=== PATIENT | male | born 1960 | race Two or more races ===

== ENCOUNTER 2019-12-09 19:24 | Inpatient (IN) | payer MEDICAID ==
[~2019-12-09] VITALS: Ht 167.6 cm; Wt 54.9 kg
[~2019-12-09 19:24] MED LIST: AMOXICILLIN125 MG ORAL; BENZTROPINE ME0.5 MG PO; CEFTRIAXON1 GM/50 ML IV; DAPSONE100 M1 ORAL; FISH OIL 500 M1 EAC4 PO; LAMIVUDINE150 MG ORAL; MULTIVITAMINS1 EAC2 ORAL; NORVIR100 M2 ORAL; PREZISTA600 MG ORAL; RISPERDAL1 MG/1 ML PO; ZIAGEN300 MG ORAL
[2019-12-09 19:37] LABS: HEMATOCRIT 29.9 % (42.0-52.0); MEAN CORPUSCULAR VOLUME 105 FL (80-99); NEUTROPHILS % (AUTO) 65.3 % (45.0-75.0); PLATELET COUNT 163 K/UL (150-450); RED BLOOD COUNT 2.86 M/UL (4.70-6.10); RED CELL DISTRIBUTION WIDTH 13.3 % (11.6-14.8); WHITE BLOOD COUNT 14.4 K/UL (4.8-10.8)
[2019-12-09 19:38] LABS: BASOPHILS % (AUTO) 0.9 % (0.0-2.0); EOSINOPHILS % (AUTO) 0.8 % (0.0-3.0); LYMPHOCYTES % (AUTO) 21.4 % (20.0-45.0); MONOCYTES % (AUTO) 11.5 % (1.0-10.0)
[2019-12-09 19:45] LABS: ANION GAP 10 mmol/L (5-15); BLOOD UREA NITROGEN 26 mg/dL (7-18); CALCIUM 7.9 MG/DL (8.5-10.1); CARBON DIOXIDE 26 MMOL/L (21-32); CHLORIDE 100 MMOL/L (98-107); CREATININE 1.3 MG/DL (0.55-1.30); SODIUM 136 MMOL/L (136-145)
[2019-12-09 19:59] LABS: ALANINE AMINOTRANSFERASE 29 U/L (12-78); ALBUMIN 2.4 G/DL (3.4-5.0); ALBUMIN/GLOBULIN RATIO 0.7 (1.0-2.7); ALKALINE PHOSPHATASE 115 U/L (46-116); ASPARTATE AMINO TRANSFERASE 24 U/L (15-37); BILIRUBIN,TOTAL 1.3 MG/DL (0.2-1.0)
[2019-12-09 20:00] LABS: BILIRUBIN,DIRECT 0.8 MG/DL (0.0-0.3)
--- NOTE | 2019-12-09 20:20 | NUR ---
ED Nurse Note: Patient provided with a gown, linen changed due to soiling, urinary catheter inserted due to incontinence, ADDTIONAL ekg taken since it was connected an unit taken from room. patient vital signs are within normal range and documented, patient still on 4L N/c satting at 100%. Will continue to monitor.
--- NOTE | 2019-12-09 20:23 | Emergency Room Report ---
History of Present Illness General Chief Complaint: Fever Source: Patient Present Illness HPI 59-year-old male presents for fever. From [facility] O2 sats 88 % on room air. Started on nasal cannula. Fever at facility. Given Tylenol. Afebrile in triage. Patient states he feels fine. Denies chest pain or shortness of breath. No other aggravating relieving factors. Denies any other associated symptoms Allergies: Coded Allergies: No Known Allergies (Unverified , 07/22/19) COVID-19 Screening Contact w/high risk pt: Yes Recent Travel to affected area: No Experienced COVID-19 symptoms?: Yes COVID-19 symptoms experienced: Fever (T>100.4F or >38C) COVID-19 Testing performed QUALITY CONTROL ASSESSOR: No Patient History Past Medical History: none Past Surgical History: none Pertinent Family History: none Social History: Denies: smoking, alcohol use, drug use Immunizations: UTD Reviewed Nursing Documentation: PMH: Agreed; PSxH: Agreed Nursing Documentation-PMH Past Medical History: No History, Except For Review of Systems All Other Systems: negative except mentioned in HPI Physical Exam Vital Signs Date Time Temp Pulse Resp B/P (MAP) Pulse Ox O2 Delivery O2 Flow Rate FiO2 12/09/19 19:25 97.9 90 18 101/66 (78) 92 Room Air Sp02 EP Interpretation: reviewed, normal General Appearance: no apparent distress, alert, GCS 15, non-toxic Head: normocephalic, atraumatic Eyes: bilateral eye normal inspection, bilateral eye PERRL ENT: hearing grossly normal, normal pharynx, no angioedema, normal voice Neck: full range of motion, supple/symm/no masses Respiratory: chest non-tender, normal breath sounds, crackles, speaking full sentences Cardiovascular #1: regular rate, rhythm, no edema Cardiovascular #2: 2+ carotid (R), 2+ carotid (L), 2+ radial (R), 2+ radial (L) , 2+ dorsalis pedis (R), 2+ dorsalis pedis (L) Gastrointestinal: normal bowel sounds, non tender, soft, non-distended, no guarding, no rebound Rectal: deferred Genitourinary: normal inspection, no CVA tenderness Musculoskeletal: back normal, normal range of motion, gait/station normal, non- tender Neurologic: alert, motor strength/tone normal, oriented x3, sensory intact, responsive, speech normal Psychiatric: judgement/insight normal, memory normal, mood/affect normal, no suicidal/homicidal ideation Reflexes: 3+ bicep (R), 3+ bicep (L), 3+ tricep (R), 3+ tricep (L), 3+ knee (R) , 3+ knee (L) Skin: other - see nursing skin notes Lymphatic: no adenopathy Medical Decision Making Diagnostic Impression: Primary Impression: Fever Qualified Codes: R50.9 - Fever, unspecified Additional Impression: Pneumonia Qualified Codes: J18.9 - Pneumonia, unspecified organism ER Course Hospital Course 59 yo M presents with fever, hypoxia. Differential diagnoses include: Pneumonia, CHF exacerbation, pneumothorax, fluid overload Clinical course Patient placed on stretcher. in isolation. i wore full PPE. On radiation monitor with hypoxia on room air. After initial history and physical I ordered labs, EKG, chest x-ray Labs -leukocytosis noted, hemoglobin/hematocrit stable, electrolytes ok, lactate okay troponins negative CXR - R sided lobe infiltrate COVID swab sent. Antibiotics given. IV fluids given. patient resting comfortably on Nasal Cannula Case discussed with Dr. Michael and he agreed to the patient to his service for further care and support I feel this is a highly complex case requiring extensive working including EKG/ Rhythm strip, Xray/CT/US, Blood/urine lab work, repeat exams while in ED, and administration of strong opiates/narcotics for pain control, admission to hospital or close patient follow up. Diagnosis - pneumonia, fever Patient admitted to floor in serious condition Labs Test 12/09/19 18:45 White Blood Count 14.4 K/UL (4.8-10.8) Red Blood Count 2.86 M/UL (4.70-6.10) Hemoglobin 9.0 G/DL (14.2-18.0) Hematocrit 29.9 % (42.0-52.0) Mean Corpuscular Volume 105 FL (80-99) Mean Corpuscular Hemoglobin 31.5 PG (27.0-31.0) Mean Corpuscular Hemoglobin Concent 30.1 G/DL (32.0-36.0) Red Cell Distribution Width 13.3 % (11.6-14.8) Platelet Count 163 K/UL (150-450) Mean Platelet Volume 9.6 FL (6.5-10.1) Neutrophils (%) (Auto) 65.3 % (45.0-75.0) Lymphocytes (%) (Auto) 21.4 % (20.0-45.0) Monocytes (%) (Auto) 11.5 % (1.0-10.0) Eosinophils (%) (Auto) 0.8 % (0.0-3.0) Basophils (%) (Auto) 0.9 % (0.0-2.0) Sodium Level 136 MMOL/L (136-145) Potassium Level 4.0 MMOL/L (3.5-5.1) Chloride Level 100 MMOL/L (98-107) Carbon Dioxide Level 26 MMOL/L (21-32) Anion Gap 10 mmol/L (5-15) Blood Urea Nitrogen 26 mg/dL (7-18) Creatinine 1.3 MG/DL (0.55-1.30) Estimat Glomerular Filtration Rate 56.3 mL/min (>60) Glucose Level 119 MG/DL (74-106) Lactic Acid Level 1.40 mmol/L (0.4-2.0) Calcium Level 7.9 MG/DL (8.5-10.1) Total Bilirubin 1.3 MG/DL (0.2-1.0) Direct Bilirubin 0.8 MG/DL (0.0-0.3) Aspartate Amino Transf (AST/SGOT) 24 U/L (15-37) Alanine Aminotransferase (ALT/SGPT) 29 U/L (12-78) Alkaline Phosphatase 115 U/L (46-116) Pro-B-Type Natriuretic Peptide 591 pg/mL (0-125) Total Protein 5.9 G/DL (6.4-8.2) Albumin 2.4 G/DL (3.4-5.0) Globulin 3.5 g/dL Albumin/Globulin Ratio 0.7 (1.0-2.7) EKG Diagnostic Results Rate: normal Rhythm: NSR ST Segments: other - RBBB ASA given to the pt in ED: No Rhythm Strip Diag. Results EP Interpretation: yes Rhythm: NSR, no PVC's, no ectopy Chest X-Ray Diagnostic Results Chest X-Ray Diagnostic Results : Chest X-Ray Ordered: Yes # of Views/Limited/Complete: 1 View Indication: Shortness of Breath EP Interpretation: Yes Interpretation: no effusion, other - perihilar congestion R side Impression: Other - pneumonia Electronically Signed by: Electronically signed by Salvador Salazar MD Last Vital Signs Date Time Temp Pulse Resp B/P (MAP) Pulse Ox O2 Delivery O2 Flow Rate FiO2 12/09/19 19:25 97.9 90 18 101/66 (78) 92 Room Air Status: improved Disposition: ADMITTED INPATIENT Condition: Serious Referrals: Latoya Michael MD (PCP) Salvador Salazar MD Dec 09, 2019 20:23
[2019-12-09 20:55] VITALS: BP 110/69
--- NOTE | 2019-12-09 21:10 | NUR ---
ED Nurse Note: Patient awake and alert, urine draining well, although dark mima. Will continue to monitor.
[2019-12-09 21:33] LABS: APPEARANCE,URINE SLIGHTLY CLOUDY; BILIRUBIN, URINE 1+ (NEGATIVE); GLUCOSE, URINE (UA) NEGATIVE (NEGATIVE); KETONES,URINE NEGATIVE (NEGATIVE); LEUKOCYTE ESTERASE ,URINE 2+ (NEGATIVE); NITRITE,URINE NEGATIVE (NEGATIVE); PH,URINE 6 (4.5-8.0); PROTEIN,URINE 2+ (NEGATIVE); UROBILINOGEN,URINE 8 MG/DL (0.0-1.0)
[2019-12-09 21:34] LABS: COLOR,URINE YELLOW
[2019-12-09 23:11] VITALS: BP 122/73
--- NOTE | 2019-12-09 23:11 | NUR ---
ED Nurse Note: Patient awake and alert, resting comfortably with no s/s of acute distress. vital signs stable and documented. Patient reports that his boyfriend may come to visit him, patient informed of no visitor status.
[2019-12-10] VITALS (8 sets, daily range): BP systolic 107–126; BP diastolic 62–75
--- NOTE | 2019-12-10 00:14 | NUR ---
ED Nurse Note: Received call from dr. Samson with the following orders and information: Tylenol 650 mg PO q6 PRN NPO O2 PRN sat 92%< Code Status: patient wishes No IV fluids; Hep Lock only AM Lab: CMP; CBC Consults called in: Angelica- Pulmonary [place]- Cardiology Ronald Nguyen - Infectious Disease. Addendum: 12/10/19 at 0046 by LOLI ED Nurse Note: Also DC home meds
--- NOTE | 2019-12-10 01:30 | NUR ---
ED Nurse Note: Patient sleeping soundly, no s/s of acute distress. NPO status continued.
--- NOTE | 2019-12-10 02:35 | NUR ---
ED Nurse Note: Patient is sleeping, non labored breathing, will continue to monitor saturation levels.
--- NOTE | 2019-12-10 03:40 | NUR ---
ED Nurse Note: Patient is still sleeping, vitals are all within normal range. will continue to monitor for transport to floor once bed is assigned.
--- NOTE | 2019-12-10 04:45 | NUR ---
ED Nurse Note: Patient is sleeping soundly, no s/s of acute distress, breathing unlabored. Will continue to monitor.
--- NOTE | 2019-12-10 05:54 | NUR ---
ED Nurse Note: Patient is sleeping soundly, no s/s of acute distress.
--- NOTE | 2019-12-10 07:03 | NUR ---
ED Nurse Note: Patient still sleeping, brething even and unlabored, vital signs stable and documented. NO BREAKFAST ORDERED, PATIENT IS NPO. Will relay status in report upon shift change.
--- NOTE | 2019-12-10 07:16 | NUR ---
HAND-OFF: Report given to Shawna Yepez RN.
--- NOTE | 2019-12-10 08:38 | NUR ---
ED Nurse Note: received pt from LORAINE Good for continuity of care. Pt on bed, awake and alert, VSS, on NC, NAD noted. Blood collected for morning labs. Maintained pt on NPO. Will continue to monitor.
[2019-12-10 08:40] LABS: BASOPHILS % (AUTO) 0.9 % (0.0-2.0); EOSINOPHILS % (AUTO) 0.7 % (0.0-3.0); HEMATOCRIT 28.7 % (42.0-52.0); HEMOGLOBIN 9.6 G/DL (14.2-18.0); LYMPHOCYTES % (AUTO) 17.8 % (20.0-45.0); MEAN CORPUSCULAR VOLUME 94 FL (80-99); MONOCYTES % (AUTO) 10.9 % (1.0-10.0); NEUTROPHILS % (AUTO) 69.7 % (45.0-75.0); PLATELET COUNT 174 K/UL (150-450); RED BLOOD COUNT 3.04 M/UL (4.70-6.10); RED CELL DISTRIBUTION WIDTH 12.3 % (11.6-14.8); WHITE BLOOD COUNT 12.1 K/UL (4.8-10.8)
[2019-12-10 08:54] LABS: ANION GAP 8 mmol/L (5-15); BLOOD UREA NITROGEN 20 mg/dL (7-18); CALCIUM 7.8 MG/DL (8.5-10.1); CARBON DIOXIDE 26 MMOL/L (21-32); CHLORIDE 102 MMOL/L (98-107); CREATININE 1.1 MG/DL (0.55-1.30); SODIUM 136 MMOL/L (136-145)
--- NOTE | 2019-12-10 09:00 | NUR ---
ED Nurse Note: Pt's a FULL CODE per Dr. Alec vail aware.
[2019-12-10 09:13] LABS: ALANINE AMINOTRANSFERASE 22 U/L (12-78); ALBUMIN 2.2 G/DL (3.4-5.0); ALBUMIN/GLOBULIN RATIO 0.5 (1.0-2.7); ALKALINE PHOSPHATASE 96 U/L (46-116); ASPARTATE AMINO TRANSFERASE 19 U/L (15-37); BILIRUBIN,TOTAL 1.4 MG/DL (0.2-1.0)
[2019-12-10 09:14] LABS: BILIRUBIN,DIRECT 0.7 MG/DL (0.0-0.3)
--- NOTE | 2019-12-10 12:30 | NUR ---
ED Nurse Note: report was given to LORAINE Dalton for continuity of care.
--- NOTE | 2019-12-10 12:54 | Diagnostic Imaging Report ---
Indication: Cough Technique: One view of the chest Comparison: 07/22/2019 Findings: The lungs and pleural spaces are clear. The heart size is normal. There is left paratracheal fullness which is not evident previously although may be exaggerated by slight rightward rotation. Impression: Nonspecific mild interstitial prominence bilaterally, similar to prior study 07/22/2019 Possible left paratracheal mass. Consider CT for further evaluation. Dr. Guerrero notified of this finding at the time of interpretation
--- NOTE | 2019-12-10 13:04 | NUR ---
TRANSFER TO MED SURG UNIT: Patient transferred to Med Surg Unit as ordered, per Dr. Michael. Report given to LORAINE Dalton. All belongings sent with pt. Family and or S/O informed of transfer.
[2019-12-10] MEDS ORDERED: Acetaminophen 500mg (ES) tab ORAL PRN (13:15)
--- NOTE | 2019-12-10 13:15 | Consultation ---
DATE OF CONSULTATION: 12/10/2019 PULMONARY CONSULTATION CONSULTING PHYSICIAN: August Dominguez MD. HISTORY OF PRESENT ILLNESS: This is a 59-year-old senior living resident admitted to the hospital with hypoxemia and fever. The patient denies any chest pain or shortness of breath. He is a senior living resident. His workup was notable for high white count of 14,000, and creatinine 1.1. His COVID-19 PCR was tested yesterday and found to be negative. His x-ray chest has shown right lower lobe infiltrate. Clinically, the patient states he is feeling better. PAST MEDICAL HISTORY: Notable for CHF, CAD, schizophrenia. HOME MEDICATIONS: Reviewed and reconciled in chart. In the past, he has been found to have UTI as well. REVIEW OF SYSTEMS: He denies any headaches, hematemesis, melena, hematochezia, night sweats, or weight loss. PHYSICAL EXAMINATION: GENERAL: Reveals a 59-year-old male. VITAL SIGNS: Blood pressure 130/60, heart rate 84, respirations , he is afebrile. T-max 100.2. HEENT: Unremarkable. LUNGS: Clear breath sounds bilaterally. ABDOMEN: Soft. EXTREMITIES: There is no edema. NEUROLOGIC: Nonfocal. LABORATORY DATA: Lab testing discussed above. X-ray chest shows recurrent right lower lobe infiltrate. IMPRESSION: 1. Pneumonia, right lower lobe, healthcare-acquired. 2. History of previous UTI. 3. HIV. 4. CHF. 5. Schizophrenia. DISCUSSION: Admit to the hospital. The patient will be seen by ID. Agree with empiric antibiotics, oxygen, and pulmonary hygiene. We will follow. August Dominguez M.D. DR: VINCENT JOB#: [id number] CC:
--- NOTE | 2019-12-10 13:29 | Cardiac Electrophysiology PN ---
Subjective Subjective [id number] Objective Last 24 Hour Vital Signs Date Time Temp Pulse Resp B/P (MAP) Pulse Ox O2 Delivery O2 Flow Rate FiO2 12/10/19 12:23 97.9 85 16 115/75 99 Nasal Cannula 3.0 12/10/19 09:54 97.9 95 14 110/70 99 Nasal Cannula 3.0 12/10/19 07:02 97.9 97 12 107/69 98 Nasal Cannula 3.0 12/10/19 05:31 97.9 97 22 126/66 98 Nasal Cannula 3.0 12/10/19 03:32 97.9 89 17 107/62 95 Nasal Cannula 3.0 12/10/19 02:04 97.9 93 21 115/66 95 Nasal Cannula 3.0 12/09/19 23:11 97.9 89 17 122/73 99 Nasal Cannula 3.0 12/09/19 20:55 97.9 83 25 110/69 97 Nasal Cannula 4.0 12/09/19 20:55 83 25 Room Air 12/09/19 19:25 97.9 90 18 101/66 (78) 92 Room Air Intake and Output 12/09/19 12/10/19 19:00 07:00 Intake Total 1000 ml Output Total 1000 ml Balance 0 ml Intake Oral 0 ml IV Total 1000 ml Output Urine Total 1000 ml Laboratory Tests Test 12/09/19 18:45 12/09/19 20:59 12/10/19 08:15 White Blood Count 14.4 K/UL (4.8-10.8) H 12.1 K/UL (4.8-10.8) H Red Blood Count 2.86 M/UL (4.70-6.10) L 3.04 M/UL (4.70-6.10) L Hemoglobin 9.0 G/DL (14.2-18.0) L 9.6 G/DL (14.2-18.0) L Hematocrit 29.9 % (42.0-52.0) L 28.7 % (42.0-52.0) L Mean Corpuscular Volume 105 FL (80-99) H 94 FL (80-99) # Mean Corpuscular Hemoglobin 31.5 PG (27.0-31.0) H 31.7 PG (27.0-31.0) H Mean Corpuscular Hemoglobin Concent 30.1 G/DL (32.0-36.0) L 33.6 G/DL (32.0-36.0) Red Cell Distribution Width 13.3 % (11.6-14.8) 12.3 % (11.6-14.8) Platelet Count 163 K/UL (150-450) 174 K/UL (150-450) Mean Platelet Volume 9.6 FL (6.5-10.1) 7.2 FL (6.5-10.1) Neutrophils (%) (Auto) 65.3 % (45.0-75.0) 69.7 % (45.0-75.0) Lymphocytes (%) (Auto) 21.4 % (20.0-45.0) 17.8 % (20.0-45.0) L Monocytes (%) (Auto) 11.5 % (1.0-10.0) H 10.9 % (1.0-10.0) H Eosinophils (%) (Auto) 0.8 % (0.0-3.0) 0.7 % (0.0-3.0) Basophils (%) (Auto) 0.9 % (0.0-2.0) 0.9 % (0.0-2.0) Sodium Level 136 MMOL/L (136-145) 136 MMOL/L (136-145) Potassium Level 4.0 MMOL/L (3.5-5.1) 4.0 MMOL/L (3.5-5.1) Chloride Level 100 MMOL/L (98-107) 102 MMOL/L (98-107) Carbon Dioxide Level 26 MMOL/L (21-32) 26 MMOL/L (21-32) Anion Gap 10 mmol/L (5-15) 8 mmol/L (5-15) Blood Urea Nitrogen 26 mg/dL (7-18) H 20 mg/dL (7-18) H Creatinine 1.3 MG/DL (0.55-1.30) 1.1 MG/DL (0.55-1.30) Estimat Glomerular Filtration Rate 56.3 mL/min (>60) > 60 mL/min (>60) Glucose Level 119 MG/DL (74-106) H 109 MG/DL (74-106) H Lactic Acid Level 1.40 mmol/L (0.4-2.0) Calcium Level 7.9 MG/DL (8.5-10.1) L 7.8 MG/DL (8.5-10.1) L Total Bilirubin 1.3 MG/DL (0.2-1.0) H 1.4 MG/DL (0.2-1.0) H Direct Bilirubin 0.8 MG/DL (0.0-0.3) H 0.7 MG/DL (0.0-0.3) H Aspartate Amino Transf (AST/SGOT) 24 U/L (15-37) 19 U/L (15-37) Alanine Aminotransferase (ALT/SGPT) 29 U/L (12-78) 22 U/L (12-78) Alkaline Phosphatase 115 U/L (46-116) 96 U/L (46-116) Troponin I 0.000 ng/mL (0.000-0.056) Pro-B-Type Natriuretic Peptide 591 pg/mL (0-125) H Total Protein 5.9 G/DL (6.4-8.2) L 6.3 G/DL (6.4-8.2) L Albumin 2.4 G/DL (3.4-5.0) L 2.2 G/DL (3.4-5.0) L Globulin 3.5 g/dL 4.1 g/dL Albumin/Globulin Ratio 0.7 (1.0-2.7) L 0.5 (1.0-2.7) L Urine Color Yellow Urine Appearance Slightly cloudy Urine pH 6 (4.5-8.0) Urine Specific [place] 1.010 (1.005-1.035) Urine Protein 2+ (NEGATIVE) H Urine Glucose (UA) Negative (NEGATIVE) Urine Ketones Negative (NEGATIVE) Urine Blood 2+ (NEGATIVE) H Urine Nitrite Negative (NEGATIVE) Urine Bilirubin 1+ (NEGATIVE) H Urine Ictotest Negative (NEGATIVE) Urine Urobilinogen 8 MG/DL (0.0-1.0) H Urine Leukocyte Esterase 2+ (NEGATIVE) H Urine RBC 5-10 /HPF (0 - 0) H Urine WBC 10-15 /HPF (0 - 0) H Urine Squamous Epithelial Cells Few /LPF (NONE/OCC) Urine Bacteria Many /HPF (NONE) H Microbiology Date/Time Source Procedure Growth Status 12/09/19 18:45 Nasopharynx Coronavirus COVID-19 PCR ([facility]) - Final Complete 12/09/19 20:59 Urine,Clean Catch Urine Culture - Preliminary Resulted Kin Reynaga MD Dec 10, 2019 13:29
[2019-12-10] MEDS: Levofloxacin 750mg tab ORAL SCH (16:41)
--- NOTE | 2019-12-10 19:07 | NUR ---
HAND-OFF: Report given to Lian Thayer RN. Patient in supine position, watching television, on room air, side rails up x 3, Sarabia catheter in place, bed in lowest position, call light within reach, no c/o pain, no SOB, in no apparent distress.
--- NOTE | 2019-12-10 19:30 | Consultation ---
DATE OF CONSULTATION: 12/10/2019 CARDIOLOGY CONSULTATION CONSULTING PHYSICIAN: Kin Reynaga MD. REFERRING PHYSICIAN: Latoya Michael MD. REASON FOR CONSULTATION: Shortness of breath and tachycardia. HISTORY OF PRESENT ILLNESS: The patient is a 59-year-old senior living resident with history of coronary artery disease, congestive heart failure, and schizophrenia, who was brought from senior living for hypoxemia and fever. The patient did not have any chest pain or shortness of breath; however, he was noted to have white count of 14,000. His COVID PCR yesterday was negative; however, chest x-ray showed right lower lobe infiltrate. The patient was admitted for right lower lobe community-acquired pneumonia and Cardiology consultation was obtained for further evaluation. REVIEW OF SYSTEMS: Negative other than what was mentioned in the history of present illness. PAST MEDICAL HISTORY: As mentioned above. FAMILY HISTORY: Noncontributory. SOCIAL HISTORY: He is a senior living resident. PHYSICAL EXAMINATION: VITAL SIGNS: Show blood pressure 115/75, pulse is 85, respiration 18, and temperature 97.9. HEAD AND NECK: Shows no JVD. LUNGS: Coarse rhonchi. CARDIOVASCULAR: Shows regular S1 and S2 with no gallop or murmur. ABDOMEN: Soft. EXTREMITIES: No pitting edema. LABORATORY DATA: White count 12, hemoglobin 9, hematocrit 28.7, and platelet count is 174,000. Sodium 132, potassium 4.0, BUN of 20, creatinine 1.0. His troponin is negative. BNP is 591. ASSESSMENT AND PLAN: 1. Shortness of breath and elevated BNP. The patient also has history of congestive heart failure, but his predominant presentation is likely pneumonia with elevated white count of 14,000. We will get an echocardiogram and completely rule out [place] protocol and his first troponin is negative. 2. History of schizophrenia. 3. Previous UTI. 4. Right lower lobe pneumonia. Follow up with Dr. Dominguez. 5. Questionable HIV. Thank you very much for allowing me to participate in the care of this patient. Please do not hesitate to contact me for any questions regarding my evaluation. Kin Reynaga M.D. DR: Michael JOB#: [id number] CC:
--- NOTE | 2019-12-10 19:40 | NUR ---
NURSE NOTES: Patient awake in bed, alert x2. On nasal cannula 2L with no signs of distress or SOB. IV intact and patent. Sarabia catheter in place, draining to gravity. No C/O pain. Bed locked and in lowest position. Call light in reach.
[2019-12-10] MEDS ORDERED: RISPERDAL1 MG PO (20:33)
[2019-12-10] MEDS ORDERED: SM CALAMINE LO177 ML TP (20:33)
[2019-12-10] MEDS ORDERED: ACETAMINOPHEN325 M1 ORAL (20:33)
[2019-12-10] MEDS ORDERED: TYLENOL EXTRA500 MG ORAL (20:33)
[2019-12-10] MEDS ORDERED: VITAMIN D325 MCG PO (20:33)
[2019-12-11] VITALS: BP 114/66
--- NOTE | 2019-12-11 | Consultation ---
DATE OF CONSULTATION: 12/10/2019 INFECTIOUS DISEASES CONSULTATION CONSULTING PHYSICIAN: Ronald Nguyen MD PRIMARY ATTENDING PHYSICIAN: Latoya Michael MD REASON FOR CONSULT: Pneumonia, UTI, and HIV. HISTORY OF PRESENT ILLNESS: A 59-year-old male, admitted from a [facility] facility yesterday because of fever and decrease in O2 saturation to 88%. The patient did not have any fever in the hospital and currently on room air, but had leukocytosis of 14.4. PAST MEDICAL HISTORY: Significant for HIV, taking abacavir, ritonavir, lamivudine, and Prezista. Nursing facility. He has history of cryptococcal meningitis. The last CD4 was 218 and viral load was undetectable. 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 A HIDA scan was negative for cholecystitis. ALLERGIES: No known drug allergies. MEDICATIONS: Got a dose of Levaquin yesterday. Currently is on Tylenol. SOCIAL HISTORY: Single, detention resident, disabled. REVIEW OF SYSTEMS: Unobtainable. The patient is only oriented to himself. PHYSICAL EXAMINATION: VITAL SIGNS: Temperature 97.9, blood pressure 114/74, and pulse 85. GENERAL APPEARANCE: No acute distress. HEAD AND NECK: Has no teeth in the lower jaw. HEART: Normal rate. LUNGS: Clear. ABDOMEN: Soft, nontender. EXTREMITIES: No edema. NEUROLOGIC: Awake, alert, and responsive. LABORATORY AND DIAGNOSTIC DATA: WBC today is 12.1, hemoglobin 9.6, hematocrit 28.7, and platelets are 174. Sodium 136, potassium 4, chloride 102, bicarbonate 26, BUN 20, creatinine 1.1, and glucose 109. The patient's chest x-ray showed nonspecific mild parenchymal prominence bilaterally, possible left parabronchial mass. COVID-19 test was negative. Urine culture is pending. UA showed RBC of 5 to 10, WBC 10 to 15, bacteria many. IMPRESSION: HIV, questionable lung mass or pneumonia, Pyuria & hematuria, likely UTI, has nephrolithiasis with right-sided staghorn stone, schizophrenia, anemia, has bifascicular heart block. RECOMMENDATION: We will continue with Levaquin. We will order a CT scan of the chest. We will resume the HIV medication if it is available in hospital. At the end of my exam, I thank Dr. Michael for involving me in the care of this patient. Ronald Nguyen M.D. DR: JACK JOB#: [id number] CC: [place]
[2019-12-11 03:25] VITALS: BP 114/67
--- NOTE | 2019-12-11 03:30 | History and Physical Report ---
DATE OF ADMISSION: 12/09/2019 HISTORY OF PRESENT ILLNESS: The patient was sent from a skilled nursing for hypoxia. The patient denies shortness of breath. Denies cough. Denies chest pain. The patient also has hypoxia and fever at the skilled nursing and was initially on 10 liters at the skilled nursing. The patient was found to have pneumonia on chest x-ray and also was tachycardic at the skilled nursing. The patient denies nausea, vomiting, or diarrhea. Denies chest pain. PAST MEDICAL HISTORY: Organic brain syndrome, history of GERD, history of HIV, history of psychosis, history of anemia. PAST SURGICAL HISTORY: Denies. ALLERGIES: No known allergies. FAMILY HISTORY: Noncontributory. SOCIAL HISTORY: Denies of smoking. Denies history of alcohol use. Denies history of drug abuse. MEDICATIONS: Cogentin, vitamin E, Prezista, lamivudine, multivitamin, risperidone and Norvir. REVIEW OF SYSTEMS: HEENT: Headaches. RESPIRATORY: Denies shortness of breath. Denies cough. CARDIOVASCULAR: Denies chest pain. GASTROINTESTINAL: Denies nausea, vomiting, or diarrhea. EXTREMITIES: Denies pain, however, is a relatively poor historian. PHYSICAL EXAMINATION: VITAL SIGNS: Temperature 97.9, pulse is 95, blood pressure 110/70. HEENT: PERRLA. NECK: Supple. CHEST: Bibasilar rhonchi. CARDIOVASCULAR: Regular rate and rhythm. No murmurs or extra sounds. GASTROINTESTINAL: Soft, nontender, nondistended. No organomegaly. EXTREMITIES: No edema. He is able to moves extremities, generalized weakness, reflexes in both sides. LABORATORY DATA: WBC of 14.4, hemoglobin of 9, platelets 163. Sodium 137, potassium 4, BUN of 26, and creatinine 1.3. Glucose of 114. Chest x-ray shows no possible pneumonia, respiratory insufficiency, sepsis or hypoxia at the skilled nursing, tachycardia at the skilled nursing. The patient also had fever at the skilled nursing. ASSESSMENT AND PLAN: Pneumonia, respiratory insufficiency, sepsis, and hypoxia. I have consulted Dr. Dominguez, Dr. Ronald Nguyen, Dr. Reynaga to help with the management of the above-mentioned abnormalities symptoms and abnormal labs as well abnormal imaging. Latoya Michael M.D. DR: AIDAN JOB#: [id number] CC:
--- NOTE | 2019-12-11 07:20 | NUR ---
HAND-OFF: Report given to LORAINE Raya.
[2019-12-11 08:00] VITALS: BP 114/69
--- NOTE | 2019-12-11 08:07 | NUR ---
NURSE NOTES: Report received from Lian BARON. Patient seen on rounds, AxOx1, able to follow commands and make needs known, on 2lpm via NC, no signs of distress, no complaints of pain. PIV on right forearm intact. Sarabia secured and draining well. Bed low and locked, siderails up x2, zone alarms on 1, call light within reach and instructed to call nurse for assistance. Will continue to monitor.
--- NOTE | 2019-12-11 08:17 | NUR ---
NURSE NOTES: Patient taken down for CT scan of chest in stable condition.
--- NOTE | 2019-12-11 08:32 | NUR ---
NURSE NOTES: Patient returned from CT in stable condition.
[2019-12-11] MEDS: Levofloxacin 750mg tab ORAL SCH (08:35)
--- NOTE | 2019-12-11 10:09 | Consultation ---
History of Present Illness General Chief Complaint: Fever Present Illness Allergies: Coded Allergies: No Known Allergies (Unverified , 07/22/19) Medication History Scheduled Abacavir Tab* (Ziagen Tab*), 300 MG ORAL TWICE A DAY, (Reported) Benztropine Mesylate* (Cogentin*), 0.5 MG PO BEDTIME, (Reported) Calamine/Zinc Oxide (Sm Calamine Lotion), 177 ML TP Q4HR, (Reported) Cholecalciferol (Vitamin D3) (Vitamin D3), 25 MCG PO DAILY, (Reported) Dapsone (Dapsone), 100 MG ORAL DAILY, (Reported) Darunavir Ethanolate* (Prezista*), 600 MG ORAL BID, (Reported) Lamivudine (Lamivudine), 150 MG ORAL TWICE A DAY, (Reported) Multivitamins* (Multivitamins*), 1 TAB ORAL DAILY, (Reported) Risperidone* (Risperdal*), 1 MG PO BID, (Reported) Ritonavir (Norvir), 100 MG ORAL WITH MEALS, (Reported) [place] Oil/[place]-3 Fatty Acids (Fish Oil 500 mg Softgel), 1 EACH PO DAILY, ( Reported) Scheduled PRN Acetaminophen* (Tylenol Extra Strength*), 1,000 MG ORAL Q4HR PRN for Mild Pain ( Pain Scale 1-3), (Reported) Acetaminophen* (Acetaminophen 325MG Tablet*), 650 MG ORAL Q4H PRN for Mild Pain (Pain Scale 1-3), (Reported) Discontinued Medications Amoxicillin (Amoxicillin), 500 MG ORAL Q8HR, (Reported) Discontinued Reason: Therapy completed Risperidone (Risperdal), 1 MG PO BEDTIME, (Reported) Discontinued Reason: Prescription changed Patient History Healthcare decision maker Resuscitation status Advanced Directive on File Physical Exam Last 24 Hour Vital Signs Date Time Temp Pulse Resp B/P (MAP) Pulse Ox O2 Delivery O2 Flow Rate FiO2 12/11/19 08:00 98.9 90 17 114/69 (84) 94 12/11/19 03:25 97.7 93 18 114/67 (83) 95 12/11/19 00:00 99.1 95 16 114/66 (82) 95 12/10/19 21:56 99.2 12/10/19 21:00 Nasal Cannula 2.0 12/10/19 20:00 101.5 101 22 113/66 (82) 92 12/10/19 16:00 98.0 101 18 122/73 (89) 94 12/10/19 14:16 Nasal Cannula 2.0 12/10/19 13:04 97.9 85 17 114/74 100 Nasal Cannula 3.0 12/10/19 12:23 97.9 85 16 115/75 99 Nasal Cannula 3.0 Intake and Output 12/10/19 12/11/19 19:00 07:00 Intake Total 800 ml 480 ml Output Total 1400 ml Balance 800 ml -920 ml Intake Oral 800 ml 480 ml Output Urine Total 1400 ml # Bowel Movements 1 Microbiology Date/Time Source Procedure Growth Status 12/10/19 14:32 Rectum Received Height (Feet): 5 Height (Inches): 6.00 Weight (Pounds): 120 Medications Current Medications Medications (Trade) Dose Ordered Sig/Sparkle Route PRN Reason Start Time Stop Time Status Last Admin Dose Admin Acetaminophen (Tylenol) 500 mg Q4H PRN ORAL Temp >100.5 12/10/19 13:15 01/09/20 13:14 12/10/19 21:26 Levofloxacin (Levaquin) 750 mg DAILY ORAL 12/10/19 16:00 12/17/19 15:59 12/11/19 08:35 Assessment/Plan Assessment/Plan: Hematology Consultation REQ : Latoya Guerrero RFC: Loeukocytosis and anemia DOS 12/11/2019 ID 59y old male presents a snf resident with history of HIV and schizophrenia, coronary artery disease, and congestive heart failure, who has been a smoker in the past, was brought to the emergency room for cough and hypoxemia, with fevers as well as eval for pna. At the time of my evaluation, the patient denies that his name. Denies any chest pain.for concern of ongoing cough, tachycardia and hypoxemia. The patient himself has no pain or complaints. He denies shortness of breath or chest pain. HAs low platelets, 116k and I have seen him before. Allergies: No Known Allergies (Unverified , 07/22/19) Past Medical History: see triage record, CAD, CHF, psych hx - schizophrenia, HIV Nursing Documentation-PMH Past Medical History: No History, Except For FAMILY HISTORY: Noncontributory. SOCIAL HISTORY: He lives in a snf. Does not smoke or drink alcohol. Review of Systems All Other Systems: negative except mentioned in HPI Physical Exam Vitals: reviewed, normal Gen: no apparent distress, alert, GCS 15 HEENT: normocephalic, atraumatic Resp: chest non-tender, lungs clear, normal breath sounds Cardiovascular: regular rate, rhythm, no edema GI: normal bowel sounds, non tender, soft, nd Msk: normal range of motion, nt Neuro: alert, responsive, speech normal, no focal defects Skin: other - See RN skin exam Lymphatic: no adenopathy Labs noted Imaging reviewed Assessment and Recs # Anemia of chronic disease, multifactorial --> no bleeding noted --> no hemolysis is seen --> hgb trend 12-->11->9.6 --> transfuse as needed # Leukocytosis likely due to pna --> wbc 14-->12 --> smear is noted --> ct of chest pending # Thrombocytopenia with a hx of low platelets in the past, currently 116k on admission, may be related to underlying pna --> smear has been reviewed --> hep panel negative, hiv NEG --> meds reviewed --> HOLD transf unless platelet drops significantly lower --> plt trend 115-->164k->174k # Pneumonia on cxr --> s/p abx that have been given --> per id --> abx: levaquin --> Ct of the chest noted # Shortness of breath likely due to the patient's underlying COPD and possible pneumonia. The patient is already on ceftriaxone and azithromycin. His first troponin is negative. --> as per pulm --> NC # HIV on anti-retroviral therapy --> per Dr. Ronald Nguyen. # UTI. --> s/p abx # Schizophrenia. # Right lower lobe pneumonia. Appreciate consultation and dw Rn. Prasad Franks MD Dec 11, 2019 10:09
[2019-12-11 10:27] LABS: BASOPHILS % (AUTO) 0.9 % (0.0-2.0); HEMATOCRIT 29.7 % (42.0-52.0); HEMOGLOBIN 9.6 G/DL (14.2-18.0); LYMPHOCYTES % (AUTO) 24.6 % (20.0-45.0); MEAN CORPUSCULAR VOLUME 101 FL (80-99); MONOCYTES % (AUTO) 9.2 % (1.0-10.0); NEUTROPHILS % (AUTO) 64.3 % (45.0-75.0); PLATELET COUNT 189 K/UL (150-450); RED BLOOD COUNT 2.94 M/UL (4.70-6.10); RED CELL DISTRIBUTION WIDTH 12.3 % (11.6-14.8); WHITE BLOOD COUNT 10.9 K/UL (4.8-10.8)
[2019-12-11 10:44] LABS: ALANINE AMINOTRANSFERASE 25 U/L (12-78); ALBUMIN 2.1 G/DL (3.4-5.0); ALBUMIN/GLOBULIN RATIO 0.5 (1.0-2.7); ALKALINE PHOSPHATASE 106 U/L (46-116); ANION GAP 8 mmol/L (5-15); ASPARTATE AMINO TRANSFERASE 18 U/L (15-37); BILIRUBIN,TOTAL 0.9 MG/DL (0.2-1.0); BLOOD UREA NITROGEN 23 mg/dL (7-18); CALCIUM 8.2 MG/DL (8.5-10.1); CARBON DIOXIDE 27 MMOL/L (21-32); CHLORIDE 104 MMOL/L (98-107); CREATININE 1.3 MG/DL (0.55-1.30); POTASSIUM 3.8 MMOL/L (3.5-5.1); SODIUM 139 MMOL/L (136-145)
--- NOTE | 2019-12-11 11:22 | Pulmonology Progress Note ---
Subjective Interval Events: Comfortable; denies pain Constitutional: Reports: no symptoms HEENT: Repors: no symptoms Respiratory: Reports: no symptoms Cardiovascular: Reports: no symptoms Gastrointestinal/Abdominal: Reports: no symptoms Genitourinary: Reports: no symptoms Allergies: Coded Allergies: No Known Allergies (Unverified , 07/22/19) Objective Last 24 Hour Vital Signs Date Time Temp Pulse Resp B/P (MAP) Pulse Ox O2 Delivery O2 Flow Rate FiO2 12/11/19 09:00 Nasal Cannula 2.0 12/11/19 08:00 98.9 90 17 114/69 (84) 94 12/11/19 03:25 97.7 93 18 114/67 (83) 95 12/11/19 00:00 99.1 95 16 114/66 (82) 95 12/10/19 21:56 99.2 12/10/19 21:00 Nasal Cannula 2.0 12/10/19 20:00 101.5 101 22 113/66 (82) 92 12/10/19 16:00 98.0 101 18 122/73 (89) 94 12/10/19 14:16 Nasal Cannula 2.0 12/10/19 13:04 97.9 85 17 114/74 100 Nasal Cannula 3.0 12/10/19 12:23 97.9 85 16 115/75 99 Nasal Cannula 3.0 Intake and Output 12/10/19 12/11/19 19:00 07:00 Intake Total 800 ml 480 ml Output Total 1400 ml Balance 800 ml -920 ml Intake Oral 800 ml 480 ml Output Urine Total 1400 ml # Bowel Movements 1 General Appearance: no acute distress HEENT: normocephalic Respiratory: chest wall non-tender Cardiovascular: normal peripheral pulses Abdomen: normal bowel sounds Microbiology Date/Time Source Procedure Growth Status 12/09/19 18:40 Blood Blood Culture - Preliminary NO GROWTH AFTER 24 HOURS Resulted 12/09/19 18:15 Blood Blood Culture - Preliminary NO GROWTH AFTER 24 HOURS Resulted 12/09/19 18:45 Nasopharynx Coronavirus COVID-19 PCR ([facility]) - Final Complete 12/09/19 20:59 Urine,Clean Catch Urine Culture - Preliminary Strep Species, Alpha Hemolytic Resulted 12/10/19 14:32 Rectum Received Laboratory Tests 12/11/19 10:15: White Blood Count [Pending], Red Blood Count 2.94L, Hemoglobin 9.6L, Hematocrit 29.7L, Mean Corpuscular Volume 101H, Mean Corpuscular Hemoglobin 32.5H, Mean Corpuscular Hemoglobin Concent 32.2, Red Cell Distribution Width 12.3, Platelet Count 189, Mean Platelet Volume 8.2, Neutrophils (%) (Auto) 64.3, Lymphocytes (% ) (Auto) 24.6, Monocytes (%) (Auto) 9.2, Eosinophils (%) (Auto) 1.0, Basophils ( %) (Auto) 0.9, Lymphocytes [Pending], Sodium Level 139, Potassium Level 3.8, Chloride Level 104, Carbon Dioxide Level 27, Anion Gap 8, Blood Urea Nitrogen 23H, Creatinine 1.3, Estimat Glomerular Filtration Rate 56.3, Glucose Level 130H , Calcium Level 8.2L, Total Bilirubin 0.9, Aspartate Amino Transf (AST/SGOT) 18 , Alanine Aminotransferase (ALT/SGPT) 25, Alkaline Phosphatase 106, Troponin I 0.000, Pro-B-Type Natriuretic Peptide 341H, Total Protein 6.6, Albumin 2.1L, Globulin 4.5, Albumin/Globulin Ratio 0.5L, Thyroid Stimulating Hormone (TSH) 1.441, Free Thyroxine 1.15, Percent CD3 Cells [Pending], Absolute CD3 Count [ Pending], Percent CD4 Cells [Pending], Absolute CD4 Count [Pending], T- Lymphocyte CD4/CD8 Ratio [Pending], Percent CD8 Cells [Pending], Absolute CD8 Count [Pending] Current Medications Medications (Trade) Dose Ordered Sig/Sparkle Route PRN Reason Start Time Stop Time Status Last Admin Dose Admin Acetaminophen (Tylenol) 500 mg Q4H PRN ORAL Temp >100.5 12/10/19 13:15 01/09/20 13:14 12/10/19 21:26 Levofloxacin (Levaquin) 750 mg DAILY ORAL 12/10/19 16:00 12/17/19 15:59 12/11/19 08:35 Assessment/Plan Assessment/Plan IMPRESSION: 1. Pneumonia, right lower lobe, healthcare-acquired. 2. History of previous UTI. 3. HIV. 4. CHF. 5. Schizophrenia. 6. Possible left paratracheal mass; will request CT chest DISCUSSION: Continue empiric antibiotics, oxygen, and pulmonary hygiene. I will follow. Await CT chest Margaret Brown Omar Syed DC Dec 11, 2019 11:22
--- NOTE | 2019-12-11 11:40 | NUR ---
NURSE NOTES: EKG results seen by Dr. Reynaga. No new orders at this time.
[2019-12-11 12:00] VITALS: BP 118/72
--- NOTE | 2019-12-11 12:01 | Diagnostic Imaging Report ---
Clinical Indication: Fever, decreased O2 saturation, shortness of breath Technique: Spiral acquisitions obtained through the chest. No IV contrast utilized, reason not stated. Multiplanar reconstructions generated. Total dose length product 165 mGycm. CTDIvol(s) 4 mGy. Dose reduction achieved using automated exposure control Comparison: none Findings: There is some respiratory motion artifact, limiting evaluation. There is some volume loss with atelectasis and/or scarring at both lung bases and also in the lower lobe perihilar regions. This results in mild bronchiectasis. No dense consolidation is demonstrated. Mosaic perfusion pattern is seen in the right upper lobe and minimally within the upper left upper lobe. The heart size is normal. No pericardial effusion. No mediastinal or hilar mass or adenopathy. The esophagus is unremarkable. Included thyroid is unremarkable. No axillary or chest wall mass or adenopathy. The bones demonstrate old healed rib fracture deformities on the right. There is a superior endplate compression fracture deformity of the T11 vertebral body, and questionably of the L1 vertebral body. There are mild degenerative proliferative changes. The included upper abdominal anatomy demonstrates a gallstone. Impression: Volume loss with atelectasis and/or scarring at both lung bases and in the lower lobe perihilar regions. Associated mild traction bronchiectasis. Bilateral upper lobe minimal mosaic perfusion pattern, nonspecific, may indicate COPD changes or mild pulmonary edema, other possibilities No acute pulmonary process otherwise. T11 and possibly L1 superior endplate vertebral body compression fracture deformities. Acuity indeterminate. Consider MRI to better characterize if clinically relevant Cholelithiasis The CT scanner at [facility] is accredited by the [employer] and the scans are performed using protocols designed to limit radiation exposure to as low as reasonably achievable to attain images of sufficient resolution adequate for diagnostic evaluation.
--- NOTE | 2019-12-11 12:01 | Cardiac Electrophysiology PN ---
Assessment/Plan Assessment/Plan 1. Shortness of breath and elevated BNP. The patient also has history of congestive heart failure, but his predominant presentation is likely pneumonia with elevated white count of 14,000. Rule out for NV Echo pending 2. History of schizophrenia. 3. Previous UTI. 4. Right lower lobe pneumonia. Follow up with Dr. Dominguez. 5. HIV. Subjective Subjective Confused in NAD. 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 Objective Last 24 Hour Vital Signs Date Time Temp Pulse Resp B/P (MAP) Pulse Ox O2 Delivery O2 Flow Rate FiO2 12/11/19 09:00 Nasal Cannula 2.0 12/11/19 08:00 98.9 90 17 114/69 (84) 94 12/11/19 03:25 97.7 93 18 114/67 (83) 95 12/11/19 00:00 99.1 95 16 114/66 (82) 95 12/10/19 21:56 99.2 12/10/19 21:00 Nasal Cannula 2.0 12/10/19 20:00 101.5 101 22 113/66 (82) 92 12/10/19 16:00 98.0 101 18 122/73 (89) 94 12/10/19 14:16 Nasal Cannula 2.0 12/10/19 13:04 97.9 85 17 114/74 100 Nasal Cannula 3.0 12/10/19 12:23 97.9 85 16 115/75 99 Nasal Cannula 3.0 Intake and Output 12/10/19 12/11/19 19:00 07:00 Intake Total 800 ml 480 ml Output Total 1400 ml Balance 800 ml -920 ml Intake Oral 800 ml 480 ml Output Urine Total 1400 ml # Bowel Movements 1 Laboratory Tests Test 12/11/19 10:15 White Blood Count Pending Red Blood Count 2.94 M/UL (4.70-6.10) L Hemoglobin 9.6 G/DL (14.2-18.0) L Hematocrit 29.7 % (42.0-52.0) L Mean Corpuscular Volume 101 FL (80-99) H Mean Corpuscular Hemoglobin 32.5 PG (27.0-31.0) H Mean Corpuscular Hemoglobin Concent 32.2 G/DL (32.0-36.0) Red Cell Distribution Width 12.3 % (11.6-14.8) Platelet Count 189 K/UL (150-450) Mean Platelet Volume 8.2 FL (6.5-10.1) Neutrophils (%) (Auto) 64.3 % (45.0-75.0) Lymphocytes (%) (Auto) 24.6 % (20.0-45.0) Monocytes (%) (Auto) 9.2 % (1.0-10.0) Eosinophils (%) (Auto) 1.0 % (0.0-3.0) Basophils (%) (Auto) 0.9 % (0.0-2.0) Lymphocytes Pending Sodium Level 139 MMOL/L (136-145) Potassium Level 3.8 MMOL/L (3.5-5.1) Chloride Level 104 MMOL/L (98-107) Carbon Dioxide Level 27 MMOL/L (21-32) Anion Gap 8 mmol/L (5-15) Blood Urea Nitrogen 23 mg/dL (7-18) H Creatinine 1.3 MG/DL (0.55-1.30) Estimat Glomerular Filtration Rate 56.3 mL/min (>60) Glucose Level 130 MG/DL (74-106) H Calcium Level 8.2 MG/DL (8.5-10.1) L Total Bilirubin 0.9 MG/DL (0.2-1.0) Aspartate Amino Transf (AST/SGOT) 18 U/L (15-37) Alanine Aminotransferase (ALT/SGPT) 25 U/L (12-78) Alkaline Phosphatase 106 U/L (46-116) Troponin I 0.000 ng/mL (0.000-0.056) Pro-B-Type Natriuretic Peptide 341 pg/mL (0-125) H Total Protein 6.6 G/DL (6.4-8.2) Albumin 2.1 G/DL (3.4-5.0) L Globulin 4.5 g/dL Albumin/Globulin Ratio 0.5 (1.0-2.7) L Thyroid Stimulating Hormone (TSH) 1.441 uiU/mL (0.358-3.740) Free Thyroxine 1.15 NG/DL (0.76-1.46) Percent CD3 Cells Pending Absolute CD3 Count Pending Percent CD4 Cells Pending Absolute CD4 Count Pending T-Lymphocyte CD4/CD8 Ratio Pending Percent CD8 Cells Pending Absolute CD8 Count Pending Microbiology Date/Time Source Procedure Growth Status 12/09/19 18:40 Blood Blood Culture - Preliminary NO GROWTH AFTER 24 HOURS Resulted 12/09/19 18:15 Blood Blood Culture - Preliminary NO GROWTH AFTER 24 HOURS Resulted 12/09/19 18:45 Nasopharynx Coronavirus COVID-19 PCR ([facility]) - Final Complete 12/09/19 20:59 Urine,Clean Catch Urine Culture - Preliminary Strep Species, Alpha Hemolytic Resulted 12/10/19 14:32 Rectum Received Objective HEAD AND NECK: Shows no JVD. LUNGS: Coarse rhonchi. CARDIOVASCULAR: Shows regular S1 and S2 with no gallop or murmur. ABDOMEN: Soft. EXTREMITIES: No pitting edema. Kin Reynaga MD Dec 11, 2019 12:00
--- NOTE | 2019-12-11 12:05 | Infectious Diseases Prog Note ---
Assessment/Plan Assessment/Plan IMPRESSION: HIV, lung mass or pneumonia, UTI, Nephrolithiasis with right-sided staghorn stone, schizophrenia, Anemia, Bifascicular heart block. RECOMMENDATION: We will change Levaquin to Augmentin We will follow CT scan of the chest Subjective ROS Limited/Unobtainable: Yes Constitutional: Reports: no symptoms Respiratory: Reports: no symptoms Gastrointestinal/Abdominal: Reports: no symptoms Genitourinary: Reports: no symptoms Allergies: Coded Allergies: No Known Allergies (Unverified , 07/22/19) Objective Vital Signs Last 24 Hour Vital Signs Date Time Temp Pulse Resp B/P (MAP) Pulse Ox O2 Delivery O2 Flow Rate FiO2 12/11/19 09:00 Nasal Cannula 2.0 12/11/19 08:00 98.9 90 17 114/69 (84) 94 12/11/19 03:25 97.7 93 18 114/67 (83) 95 12/11/19 00:00 99.1 95 16 114/66 (82) 95 12/10/19 21:56 99.2 12/10/19 21:00 Nasal Cannula 2.0 12/10/19 20:00 101.5 101 22 113/66 (82) 92 12/10/19 16:00 98.0 101 18 122/73 (89) 94 12/10/19 14:16 Nasal Cannula 2.0 12/10/19 13:04 97.9 85 17 114/74 100 Nasal Cannula 3.0 12/10/19 12:23 97.9 85 16 115/75 99 Nasal Cannula 3.0 Height (Feet): 5 Height (Inches): 6.00 Weight (Pounds): 120 General Appearance: no acute distress HEENT: mucous membranes moist Respiratory/Chest: lungs clear Cardiovascular: normal rate, other - oxygen by nasal cannula Abdomen: soft, non tender Extremities: no edema Neurologic/Psychiatric: alert, responsive, disoriented Microbiology Date/Time Source Procedure Growth Status 12/09/19 18:40 Blood Blood Culture - Preliminary NO GROWTH AFTER 24 HOURS Resulted 12/09/19 18:15 Blood Blood Culture - Preliminary NO GROWTH AFTER 24 HOURS Resulted 12/09/19 18:45 Nasopharynx Coronavirus COVID-19 PCR ([facility]) - Final Complete 12/09/19 20:59 Urine,Clean Catch Urine Culture - Preliminary Strep Species, Alpha Hemolytic Resulted 12/10/19 14:32 Rectum Received Laboratory Tests Test 12/11/19 10:15 White Blood Count Pending Red Blood Count 2.94 M/UL (4.70-6.10) L Hemoglobin 9.6 G/DL (14.2-18.0) L Hematocrit 29.7 % (42.0-52.0) L Mean Corpuscular Volume 101 FL (80-99) H Mean Corpuscular Hemoglobin 32.5 PG (27.0-31.0) H Mean Corpuscular Hemoglobin Concent 32.2 G/DL (32.0-36.0) Red Cell Distribution Width 12.3 % (11.6-14.8) Platelet Count 189 K/UL (150-450) Mean Platelet Volume 8.2 FL (6.5-10.1) Neutrophils (%) (Auto) 64.3 % (45.0-75.0) Lymphocytes (%) (Auto) 24.6 % (20.0-45.0) Monocytes (%) (Auto) 9.2 % (1.0-10.0) Eosinophils (%) (Auto) 1.0 % (0.0-3.0) Basophils (%) (Auto) 0.9 % (0.0-2.0) Lymphocytes Pending Sodium Level 139 MMOL/L (136-145) Potassium Level 3.8 MMOL/L (3.5-5.1) Chloride Level 104 MMOL/L (98-107) Carbon Dioxide Level 27 MMOL/L (21-32) Anion Gap 8 mmol/L (5-15) Blood Urea Nitrogen 23 mg/dL (7-18) H Creatinine 1.3 MG/DL (0.55-1.30) Estimat Glomerular Filtration Rate 56.3 mL/min (>60) Glucose Level 130 MG/DL (74-106) H Calcium Level 8.2 MG/DL (8.5-10.1) L Total Bilirubin 0.9 MG/DL (0.2-1.0) Aspartate Amino Transf (AST/SGOT) 18 U/L (15-37) Alanine Aminotransferase (ALT/SGPT) 25 U/L (12-78) Alkaline Phosphatase 106 U/L (46-116) Troponin I 0.000 ng/mL (0.000-0.056) Pro-B-Type Natriuretic Peptide 341 pg/mL (0-125) H Total Protein 6.6 G/DL (6.4-8.2) Albumin 2.1 G/DL (3.4-5.0) L Globulin 4.5 g/dL Albumin/Globulin Ratio 0.5 (1.0-2.7) L Thyroid Stimulating Hormone (TSH) 1.441 uiU/mL (0.358-3.740) Free Thyroxine 1.15 NG/DL (0.76-1.46) Percent CD3 Cells Pending Absolute CD3 Count Pending Percent CD4 Cells Pending Absolute CD4 Count Pending T-Lymphocyte CD4/CD8 Ratio Pending Percent CD8 Cells Pending Absolute CD8 Count Pending Current Medications Medications (Trade) Dose Ordered Sig/Sparkle Route PRN Reason Start Time Stop Time Status Last Admin Dose Admin Acetaminophen (Tylenol) 500 mg Q4H PRN ORAL Temp >100.5 12/10/19 13:15 01/09/20 13:14 12/10/19 21:26 Levofloxacin (Levaquin) 750 mg DAILY ORAL 12/10/19 16:00 12/17/19 15:59 12/11/19 08:35 Ronald Nguyen MD Dec 11, 2019 12:05
--- NOTE | 2019-12-11 12:15 | NUR ---
NURSE NOTES: Pulled out Augmentin from [facility] due dose but Ampicllin tablet was in cartridge. Notified Mariann from pharmacy, pulled out another dose and gave Ampicillin tablet to information technology security manager Lin.
[2019-12-11] MEDS: Augmentin 875mg Tab ORAL SCH ×2 (12:47→20:12)
--- NOTE | 2019-12-11 13:58 | NUR ---
CASE MANAGEMENT: INITIAL REVIEW 59YR OLD MALE BIBA FROM [facility] CC: FEVER; HYPOXIA ; DESATURATION TO 88%; SI:FEVER . PNA . COVID-19 R/O . URINE CX + STREP SPECIES HX: SCHIZOPHRENIA 97.8 90 18 101/66 92% ON RA WBC 14.4 H/H 9/29.9 BUN 26 BG 119 CA+ 7.9 T.MELLY/D.MELLY 1.3/0.8 BNP 591 ALBUMIN 2.4 IS:IVF NS BOLUS X1 IV LEVAQUIN X1 TYLENOL PO X1 XRAY Chest 1v- Nonspecific mild interstitial prominence bilaterally. Possible left paratracheal mass. Consider CT for further evaluation. \: 4E MED SURG UNIT DCP: SNF WHEN STABLE PLAN: START ON OXYGEN THERAPY CONTROL FEVERS BILATERAL SCD'S ISOLATION PRECAUTION R/O OUT MASS RADIOLOGY RECOMMENDATION CT CHEST CASE MANAGEMENT: REVIEW 12/10/19 SI:FEVER . PNA RIGHT LL. COVID-19 R/O 101.5 101 22 113/66 92% ON 2L NC BUN 20 BG 130 CA+ 8.2 ALBUMIN 2.1 WBC 12.1 H/H 9.6/28.7 IS:AMOXICILLIN PO BID TYLENOL PO Q4HR/PRN \: 4E MED SURG UNIT DCP: SNF WHEN STABLE PLAN: CONTROL FEVERS SWITCH IV ABX COVID-[address] IN AM CASE MANAGEMENT: REVIEW 12/11/19 SI:FEVER . PNA RIGHT LL. COVID-19 R/O 98.9 90 17 114/69 94% ON 2L NC BNP 341 ( SOME LABS PENDING ) IS:AMOXICILLIN PO BID TYLENOL PO Q4HR/PRN CT Chest no Contrast: Fever, decreased O2 saturation, SOB- Volume loss with atelectasis and/or scarring at both lung bases and in the lower lobe perihilar regions. Associated mild traction bronchiectasis. Bilateral upper lobe minimal mosaic perfusion pattern, nonspecific, may indicate COPD changes or mild pulmonary edema, other possibilities. No acute pulmonary process otherwise. T11 and possibly L1 superior endplate vertebral body compression fracture deformities. Acuity indeterminate. Consider MRI to better characterize if clinically relevant. Cholelithiasis \: 4E MED SURG UNIT DCP: SNF WHEN STABLE PLAN: FEVERS BETTER CONTROLLED HIV SCREENING IN PROCESS CONSULT HEMATOLOGY D/C ISOLATION
--- NOTE | 2019-12-11 14:38 | NUR ---
*-* INSURANCE *-* ALL CLINICALS AND REVIEWS HAVE BEEN FAXED TO: [employer] [facility] AUTH#[id number] P:[phone] F:[phone]
[2019-12-11 16:00] VITALS: BP 103/65
--- NOTE | 2019-12-11 16:47 | General Progress Note ---
Assessment/Plan Problem List: (1) Dehydration ICD Codes: E86.0 - Dehydration SNOMED: 80164021 (2) Anemia ICD Codes: D64.9 - Anemia, unspecified SNOMED: 341957797 (3) Fever ICD Codes: R50.9 - Fever, unspecified SNOMED: 379989373 Qualifiers: Qualified Codes: R50.9 - Fever, unspecified (4) Pneumonia ICD Codes: J18.9 - Pneumonia, unspecified organism SNOMED: 140933784 Qualifiers: Qualified Codes: J18.9 - Pneumonia, unspecified organism (5) Electrolyte imbalance ICD Codes: E87.8 - Other disorders of electrolyte and fluid balance, not elsewhere classified SNOMED: 302800835 Status: progressing Assessment/Plan: hypoxic sob resp insuff pna s/p hypoxic continue supportive therapy afebrile Subjective Respiratory: Reports: shortness of breath Allergies: Coded Allergies: No Known Allergies (Unverified , 07/22/19) Objective Last 24 Hour Vital Signs Date Time Temp Pulse Resp B/P (MAP) Pulse Ox O2 Delivery O2 Flow Rate FiO2 12/11/19 12:00 98.7 95 18 118/72 (87) 96 12/11/19 09:00 Nasal Cannula 2.0 12/11/19 08:00 98.9 90 17 114/69 (84) 94 12/11/19 03:25 97.7 93 18 114/67 (83) 95 12/11/19 00:00 99.1 95 16 114/66 (82) 95 12/10/19 21:56 99.2 12/10/19 21:00 Nasal Cannula 2.0 12/10/19 20:00 101.5 101 22 113/66 (82) 92 Intake and Output 12/10/19 12/11/19 19:00 07:00 Intake Total 800 ml 480 ml Output Total 1400 ml Balance 800 ml -920 ml Intake Oral 800 ml 480 ml Output Urine Total 1400 ml # Bowel Movements 1 Laboratory Tests 12/11/19 10:15: White Blood Count [Pending], Red Blood Count 2.94L, Hemoglobin 9.6L, Hematocrit 29.7L, Mean Corpuscular Volume 101H, Mean Corpuscular Hemoglobin 32.5H, Mean Corpuscular Hemoglobin Concent 32.2, Red Cell Distribution Width 12.3, Platelet Count 189, Mean Platelet Volume 8.2, Neutrophils (%) (Auto) 64.3, Lymphocytes (% ) (Auto) 24.6, Monocytes (%) (Auto) 9.2, Eosinophils (%) (Auto) 1.0, Basophils ( %) (Auto) 0.9, Lymphocytes [Pending], Sodium Level 139, Potassium Level 3.8, Chloride Level 104, Carbon Dioxide Level 27, Anion Gap 8, Blood Urea Nitrogen 23H, Creatinine 1.3, Estimat Glomerular Filtration Rate 56.3, Glucose Level 130H , Calcium Level 8.2L, Total Bilirubin 0.9, Aspartate Amino Transf (AST/SGOT) 18 , Alanine Aminotransferase (ALT/SGPT) 25, Alkaline Phosphatase 106, Troponin I 0.000, Pro-B-Type Natriuretic Peptide 341H, Total Protein 6.6, Albumin 2.1L, Globulin 4.5, Albumin/Globulin Ratio 0.5L, Thyroid Stimulating Hormone (TSH) 1.441, Free Thyroxine 1.15, Percent CD3 Cells [Pending], Absolute CD3 Count [ Pending], Percent CD4 Cells [Pending], Absolute CD4 Count [Pending], T- Lymphocyte CD4/CD8 Ratio [Pending], Percent CD8 Cells [Pending], Absolute CD8 Count [Pending] Height (Feet): 5 Height (Inches): 6.00 Weight (Pounds): 120 Latoya Michael MD Dec 11, 2019 16:47
--- NOTE | 2019-12-11 19:36 | NUR ---
HAND-OFF: Report given to Lian BARON.
[2019-12-11 20:00] VITALS: BP 104/63
[2019-12-12] VITALS: BP 111/70
[2019-12-12 04:00] VITALS: BP 121/76
--- NOTE | 2019-12-12 06:35 | NUR ---
NURSE NOTES: Patient positive for MRSA nares; Pedrito Nguyen made aware. No orders at this time.
--- NOTE | 2019-12-12 07:03 | Pulmonology Progress Note ---
Subjective ROS Limited/Unobtainable: Yes Interval Events: Comfortable; denies pain Constitutional: Reports: no symptoms HEENT: Repors: no symptoms Respiratory: Reports: no symptoms Cardiovascular: Reports: no symptoms Gastrointestinal/Abdominal: Reports: no symptoms Genitourinary: Reports: no symptoms Allergies: Coded Allergies: No Known Allergies (Unverified , 07/22/19) Objective Last 24 Hour Vital Signs Date Time Temp Pulse Resp B/P (MAP) Pulse Ox O2 Delivery O2 Flow Rate FiO2 12/12/19 04:00 98.2 94 18 121/76 (91) 96 12/12/19 00:00 98.8 92 18 111/70 (84) 95 12/11/19 21:00 Nasal Cannula 2.0 12/11/19 20:00 98.6 91 18 104/63 (77) 94 12/11/19 16:00 98.2 90 18 103/65 (78) 96 12/11/19 12:00 98.7 95 18 118/72 (87) 96 12/11/19 09:00 Nasal Cannula 2.0 12/11/19 08:00 98.9 90 17 114/69 (84) 94 Intake and Output 12/11/19 12/12/19 19:00 07:00 Intake Total 500 ml 400 ml Output Total 1000 ml Balance 500 ml -600 ml Intake Oral 500 ml 400 ml Output Urine Total 1000 ml # Bowel Movements 2 General Appearance: no acute distress HEENT: normocephalic Respiratory: chest wall non-tender Cardiovascular: normal peripheral pulses Abdomen: normal bowel sounds Microbiology Date/Time Source Procedure Growth Status 12/09/19 18:40 Blood Blood Culture - Preliminary NO GROWTH AFTER 48 HOURS Resulted 12/09/19 18:15 Blood Blood Culture - Preliminary NO GROWTH AFTER 48 HOURS Resulted 12/10/19 14:32 Nasal Not Otherwise Specified MRSA Culture - Final Staphylococcus Aureus - Mrsa Complete 12/09/19 18:45 Nasopharynx Coronavirus COVID-19 PCR ([facility]) - Final Complete 12/09/19 20:59 Urine,Clean Catch Urine Culture - Final Aerococcus Urinae Complete 12/10/19 14:32 Rectum - Final NO CARBAPENEM-RESISTANT ENTEROBACTERI... Complete 12/10/19 14:32 Rectum VRE Culture - Final NO VANCOMYCIN RESISTANT ENTEROCOCCUS ... Complete Laboratory Tests 12/11/19 10:15: White Blood Count [Pending], Red Blood Count 2.94L, Hemoglobin 9.6L, Hematocrit 29.7L, Mean Corpuscular Volume 101H, Mean Corpuscular Hemoglobin 32.5H, Mean Corpuscular Hemoglobin Concent 32.2, Red Cell Distribution Width 12.3, Platelet Count 189, Mean Platelet Volume 8.2, Neutrophils (%) (Auto) 64.3, Lymphocytes (% ) (Auto) 24.6, Monocytes (%) (Auto) 9.2, Eosinophils (%) (Auto) 1.0, Basophils ( %) (Auto) 0.9, Lymphocytes [Pending], Sodium Level 139, Potassium Level 3.8, Chloride Level 104, Carbon Dioxide Level 27, Anion Gap 8, Blood Urea Nitrogen 23H, Creatinine 1.3, Estimat Glomerular Filtration Rate 56.3, Glucose Level 130H , Calcium Level 8.2L, Total Bilirubin 0.9, Aspartate Amino Transf (AST/SGOT) 18 , Alanine Aminotransferase (ALT/SGPT) 25, Alkaline Phosphatase 106, Troponin I 0.000, Pro-B-Type Natriuretic Peptide 341H, Total Protein 6.6, Albumin 2.1L, Globulin 4.5, Albumin/Globulin Ratio 0.5L, Thyroid Stimulating Hormone (TSH) 1.441, Free Thyroxine 1.15, Percent CD3 Cells [Pending], Absolute CD3 Count [ Pending], Percent CD4 Cells [Pending], Absolute CD4 Count [Pending], T- Lymphocyte CD4/CD8 Ratio [Pending], Percent CD8 Cells [Pending], Absolute CD8 Count [Pending] Current Medications Medications (Trade) Dose Ordered Sig/Sparkle Route PRN Reason Start Time Stop Time Status Last Admin Dose Admin Acetaminophen (Tylenol) 500 mg Q4H PRN ORAL Temp >100.5 12/10/19 13:15 01/09/20 13:14 12/10/19 21:26 Amoxicillin/ Clavulanate Potassium (Augmentin) 875 mg EVERY 12 HOURS ORAL 12/11/19 12:15 12/18/19 12:14 12/11/19 20:12 Assessment/Plan Assessment/Plan IMPRESSION: 1. Pneumonia, right lower lobe, healthcare-acquired. 2. History of previous UTI. 3. HIV. 4. CHF. 5. Schizophrenia. 6. Possible left paratracheal mass; will request CT chest DISCUSSION: Continue empiric antibiotics, oxygen, and pulmonary hygiene. I will follow. Await CT chest Margaret Brown Omar Syed MD Dec 12, 2019 07:03
--- NOTE | 2019-12-12 07:22 | NUR ---
HAND-OFF: Report given to LORAINE Raya.
[2019-12-12 08:00] VITALS: BP 102/55
--- NOTE | 2019-12-12 08:27 | NUR ---
NURSE NOTES: Report received from LORAINE Beal. Patient seen on rounds, AxOx2, on 2lpm via NC, not in distress, tolerating well. PIV on right forearm patent and intact. Sarabia secured and draining well. Bed low and locked, siderails up x2, zone alarms on 1, instructed to call nurse for assistance, call light within reach. Will continue to monitor.
[2019-12-12] MEDS: Augmentin 875mg Tab ORAL SCH ×2 (09:05→21:23)
--- NOTE | 2019-12-12 09:28 | General Progress Note ---
Assessment/Plan Problem List: (1) Dehydration ICD Codes: E86.0 - Dehydration SNOMED: 67959910 (2) Anemia ICD Codes: D64.9 - Anemia, unspecified SNOMED: 027641023 (3) Fever ICD Codes: R50.9 - Fever, unspecified SNOMED: 749058652 Qualifiers: Qualified Codes: R50.9 - Fever, unspecified (4) Pneumonia ICD Codes: J18.9 - Pneumonia, unspecified organism SNOMED: 921858916 Qualifiers: Qualified Codes: J18.9 - Pneumonia, unspecified organism (5) Electrolyte imbalance ICD Codes: E87.8 - Other disorders of electrolyte and fluid balance, not elsewhere classified SNOMED: 509857249 Status: progressing Assessment/Plan: hypoxic sob resp insuff pna sepsis afebrile abx per id Subjective ROS Limited/Unobtainable: Yes Allergies: Coded Allergies: No Known Allergies (Unverified , 07/22/19) Objective Last 24 Hour Vital Signs Date Time Temp Pulse Resp B/P (MAP) Pulse Ox O2 Delivery O2 Flow Rate FiO2 12/12/19 04:00 98.2 94 18 121/76 (91) 96 12/12/19 00:00 98.8 92 18 111/70 (84) 95 12/11/19 21:00 Nasal Cannula 2.0 12/11/19 20:00 98.6 91 18 104/63 (77) 94 12/11/19 16:00 98.2 90 18 103/65 (78) 96 12/11/19 12:00 98.7 95 18 118/72 (87) 96 Intake and Output 12/11/19 12/12/19 19:00 07:00 Intake Total 500 ml 400 ml Output Total 1000 ml Balance 500 ml -600 ml Intake Oral 500 ml 400 ml Output Urine Total 1000 ml # Bowel Movements 2 Laboratory Tests 12/11/19 10:15: White Blood Count [Pending], Red Blood Count 2.94L, Hemoglobin 9.6L, Hematocrit 29.7L, Mean Corpuscular Volume 101H, Mean Corpuscular Hemoglobin 32.5H, Mean Corpuscular Hemoglobin Concent 32.2, Red Cell Distribution Width 12.3, Platelet Count 189, Mean Platelet Volume 8.2, Neutrophils (%) (Auto) 64.3, Lymphocytes (% ) (Auto) 24.6, Monocytes (%) (Auto) 9.2, Eosinophils (%) (Auto) 1.0, Basophils ( %) (Auto) 0.9, Lymphocytes [Pending], Sodium Level 139, Potassium Level 3.8, Chloride Level 104, Carbon Dioxide Level 27, Anion Gap 8, Blood Urea Nitrogen 23H, Creatinine 1.3, Estimat Glomerular Filtration Rate 56.3, Glucose Level 130H , Calcium Level 8.2L, Total Bilirubin 0.9, Aspartate Amino Transf (AST/SGOT) 18 , Alanine Aminotransferase (ALT/SGPT) 25, Alkaline Phosphatase 106, Troponin I 0.000, Pro-B-Type Natriuretic Peptide 341H, Total Protein 6.6, Albumin 2.1L, Globulin 4.5, Albumin/Globulin Ratio 0.5L, Thyroid Stimulating Hormone (TSH) 1.441, Free Thyroxine 1.15, Percent CD3 Cells [Pending], Absolute CD3 Count [ Pending], Percent CD4 Cells [Pending], Absolute CD4 Count [Pending], T- Lymphocyte CD4/CD8 Ratio [Pending], Percent CD8 Cells [Pending], Absolute CD8 Count [Pending] Height (Feet): 5 Height (Inches): 6.00 Weight (Pounds): 121 Latoya Michael MD Dec 12, 2019 09:28
[2019-12-12 12:00] VITALS: BP 107/67
--- NOTE | 2019-12-12 15:56 | Cardiac Electrophysiology PN ---
Assessment/Plan Assessment/Plan 1. Shortness of breath and elevated BNP. The patient also has history of congestive heart failure, but his predominant presentation is likely pneumonia with elevated white count of 14,000. Rule out for [place] Echo Nl EF 2. History of schizophrenia. 3. Previous UTI. 4. Right lower lobe pneumonia. Follow up with Dr. Dominguez. 5. HIV. Subjective Subjective Confused in NAD. 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 Objective Last 24 Hour Vital Signs Date Time Temp Pulse Resp B/P (MAP) Pulse Ox O2 Delivery O2 Flow Rate FiO2 12/12/19 12:00 97.3 85 20 107/67 (80) 95 12/12/19 09:00 Nasal Cannula 2.0 12/12/19 08:00 97.2 90 20 102/55 (71) 94 12/12/19 04:00 98.2 94 18 121/76 (91) 96 12/12/19 00:00 98.8 92 18 111/70 (84) 95 12/11/19 21:00 Nasal Cannula 2.0 12/11/19 20:00 98.6 91 18 104/63 (77) 94 12/11/19 16:00 98.2 90 18 103/65 (78) 96 Intake and Output 12/11/19 12/12/19 19:00 07:00 Intake Total 500 ml 400 ml Output Total 1000 ml Balance 500 ml -600 ml Intake Oral 500 ml 400 ml Output Urine Total 1000 ml # Bowel Movements 2 Microbiology Date/Time Source Procedure Growth Status 12/09/19 18:40 Blood Blood Culture - Preliminary NO GROWTH AFTER 48 HOURS Resulted 12/09/19 18:15 Blood Blood Culture - Preliminary NO GROWTH AFTER 48 HOURS Resulted 12/10/19 14:32 Nasal Not Otherwise Specified MRSA Culture - Final Staphylococcus Aureus - Mrsa Complete 12/09/19 18:45 Nasopharynx Coronavirus COVID-19 PCR ([facility]) - Final Complete 12/09/19 20:59 Urine,Clean Catch Urine Culture - Final Aerococcus Urinae Complete 12/10/19 14:32 Rectum - Final NO CARBAPENEM-RESISTANT ENTEROBACTERI... Complete 12/10/19 14:32 Rectum VRE Culture - Final NO VANCOMYCIN RESISTANT ENTEROCOCCUS ... Complete Objective HEAD AND NECK: No JVD. LUNGS: Coarse rhonchi. CARDIOVASCULAR: Shows regular S1 and S2 with no gallop or murmur. ABDOMEN: Soft. EXTREMITIES: No pitting edema. Kin Reynaga MD Dec 12, 2019 15:56
[2019-12-12 16:00] VITALS: BP 107/67
--- NOTE | 2019-12-12 19:44 | NUR ---
HAND-OFF: Report given to Dylan BARON.
[2019-12-12 20:00] VITALS: BP 99/63
--- NOTE | 2019-12-12 20:12 | NUR ---
NURSE NOTES: Received report from Marry BARON. The patient is alert and oriented x1 with Resp even and unlabored. He is on 2 liters of Oxygen via NC with an Spo2 98% NC. Call light within each reach and will continue to monitor
[2019-12-13] VITALS: BP 110/71
[2019-12-13 04:00] VITALS: BP 119/64
--- NOTE | 2019-12-13 04:02 | NUR ---
The resident was able to sleep all night long is alert and stable. He is on continuos 2 liters of oxygen via NC, the patient has no IV line and when tried to reinsert an IV line , the patient refused saying " I don't want it."He was educated on the important of having an IV-line but he said "I removed the previous one because I don't want it. will continue to monitor
--- NOTE | 2019-12-13 07:26 | NUR ---
HAND-OFF: Report given to Marry BARON [].
--- NOTE | 2019-12-13 07:28 | NUR ---
NURSE NOTES: Report received from Dylan RN. Patient seen on rounds, AxOx1, not in distress, on O2 at 2lpm via NC. Nurse reports patient removed PIV line and refused reinsertion. Sarabia cath secured and draining well. Bed low and locked, siderails up x2, zone alarms on 1, call light within reach, will continue to monitor.
[2019-12-13 08:00] VITALS: BP 99/66
[2019-12-13] MEDS: Augmentin 875mg Tab ORAL SCH ×2 (08:03→20:57)
--- NOTE | 2019-12-13 09:44 | Hematology/Onc Progress Note ---
Assessment/Plan Assessment/Plan Assessment and Recs # Anemia of chronic disease, multifactorial --> no bleeding noted --> no hemolysis is seen --> hgb trend 12-->11-->9.6 --> transfuse as needed # Leukocytosis likely due to pna --> wbc 14-->12 --> smear is noted --> ct of chest reviewed --> abx: augmentin # Thrombocytopenia with a hx of low platelets in the past, currently 116k on admission, may be related to underlying pna --> smear has been reviewed --> hep panel negative, hiv NEG --> meds reviewed --> HOLD transf unless platelet drops significantly lower --> plt trend 115-->164k->174k # Pneumonia on cxr --> per id --> abx: levaquin-->augmentin --> Ct of the chest noted # Shortness of breath likely due to the patient's underlying COPD and possible pneumonia. The patient is already on ceftriaxone and azithromycin. His first troponin is negative. --> as per pulm --> NC # HIV on anti-retroviral therapy --> per Dr. Ronald Nguyen. # UTI. --> s/p abx # Schizophrenia. # Right lower lobe pneumonia. Appreciate consultation and krista Rn. Subjective Allergies: Coded Allergies: No Known Allergies (Unverified , 07/22/19) Subjective 12/12 confused, no acute events, ct chest reviewed, nc 2l, iv abx Objective Objective Current Medications Medications (Trade) Dose Ordered Sig/Sparkle Route PRN Reason Start Time Stop Time Status Last Admin Dose Admin Acetaminophen (Tylenol) 500 mg Q4H PRN ORAL Temp >100.5 12/10/19 13:15 01/09/20 13:14 12/10/19 21:26 Amoxicillin/ Clavulanate Potassium (Augmentin) 875 mg EVERY 12 HOURS ORAL 12/11/19 12:15 12/18/19 12:14 12/13/19 08:03 Last 24 Hour Vital Signs Date Time Temp Pulse Resp B/P (MAP) Pulse Ox O2 Delivery O2 Flow Rate FiO2 12/13/19 04:00 99.2 87 20 119/64 (82) 93 12/13/19 00:00 99.5 86 20 110/71 (84) 94 12/12/19 21:00 Nasal Cannula 2.0 12/12/19 20:00 98.6 91 18 99/63 (75) 93 12/12/19 16:00 98.8 87 20 107/67 (80) 4 12/12/19 12:00 97.3 85 20 107/67 (80) 95 12/12/19 09:00 Nasal Cannula 2.0 12/12/19 08:00 97.2 90 20 102/55 (71) 94 12/12/19 04:00 98.2 94 18 121/76 (91) 96 12/12/19 00:00 98.8 92 18 111/70 (84) 95 12/11/19 21:00 Nasal Cannula 2.0 12/11/19 20:00 98.6 91 18 104/63 (77) 94 12/11/19 16:00 98.2 90 18 103/65 (78) 96 12/11/19 12:00 98.7 95 18 118/72 (87) 96 Intake and Output 12/12/19 12/13/19 19:00 07:00 Intake Total 340 ml 430 ml Output Total 600 ml 650 ml Balance -260 ml -220 ml Intake Oral 340 ml 430 ml Output Urine Total 600 ml 650 ml # Bowel Movements 1 2 Labs Test 12/11/19 10:15 White Blood Count 10.1 x10E3/uL (3.4-10.8) Red Blood Count 2.94 M/UL (4.70-6.10) Hemoglobin 9.6 G/DL (14.2-18.0) Hematocrit 29.7 % (42.0-52.0) Mean Corpuscular Volume 101 FL (80-99) Mean Corpuscular Hemoglobin 32.5 PG (27.0-31.0) Mean Corpuscular Hemoglobin Concent 32.2 G/DL (32.0-36.0) Red Cell Distribution Width 12.3 % (11.6-14.8) Platelet Count 189 K/UL (150-450) Mean Platelet Volume 8.2 FL (6.5-10.1) Neutrophils (%) (Auto) 64.3 % (45.0-75.0) Lymphocytes (%) (Auto) 24.6 % (20.0-45.0) Monocytes (%) (Auto) 9.2 % (1.0-10.0) Eosinophils (%) (Auto) 1.0 % (0.0-3.0) Basophils (%) (Auto) 0.9 % (0.0-2.0) Lymphocytes 27 % (Not Estab.) Nucleated Red Blood Cells (.) Sodium Level 139 MMOL/L (136-145) Potassium Level 3.8 MMOL/L (3.5-5.1) Chloride Level 104 MMOL/L (98-107) Carbon Dioxide Level 27 MMOL/L (21-32) Anion Gap 8 mmol/L (5-15) Blood Urea Nitrogen 23 mg/dL (7-18) Creatinine 1.3 MG/DL (0.55-1.30) Estimat Glomerular Filtration Rate 56.3 mL/min (>60) Glucose Level 130 MG/DL (74-106) Calcium Level 8.2 MG/DL (8.5-10.1) Total Bilirubin 0.9 MG/DL (0.2-1.0) Aspartate Amino Transf (AST/SGOT) 18 U/L (15-37) Alanine Aminotransferase (ALT/SGPT) 25 U/L (12-78) Alkaline Phosphatase 106 U/L (46-116) Troponin I 0.000 ng/mL (0.000-0.056) Pro-B-Type Natriuretic Peptide 341 pg/mL (0-125) Total Protein 6.6 G/DL (6.4-8.2) Albumin 2.1 G/DL (3.4-5.0) Globulin 4.5 g/dL Albumin/Globulin Ratio 0.5 (1.0-2.7) Thyroid Stimulating Hormone (TSH) 1.441 uiU/mL (0.358-3.740) Free Thyroxine 1.15 NG/DL (0.76-1.46) Absolute Lymphocytes (Cell Immunity 2.7 x10E3/uL (0.7-3.1) Percent CD3 Cells 73.4 % (57.5-86.2) Absolute CD3 Count 1982 /uL (622-2402) Percent CD4 Cells 20.0 % (30.8-58.5) Absolute CD4 Count 540 /uL (359-1519) T-Lymphocyte CD4/CD8 Ratio 0.36 (0.92-3.72) Percent CD8 Cells 55.1 % (12.0-35.5) Absolute CD8 Count 1488 /uL (109-897) Height (Feet): 5 Height (Inches): 6.00 Weight (Pounds): 121 Objective Physical Exam Vitals: reviewed, normal Gen: no apparent distress, alert, GCS 15 HEENT: normocephalic, atraumatic Resp: chest non-tender, lungs clear, normal breath sounds Cardiovascular: regular rate, rhythm, no edema GI: normal bowel sounds, non tender, soft, nd Msk: normal range of motion, nt Neuro: alert, responsive, speech normal, no focal defects Skin: other - See RN skin exam Lymphatic: no adenopathy Prasad Franks MD Dec 13, 2019 09:44
[2019-12-13 12:00] VITALS: BP 97/52
--- NOTE | 2019-12-13 12:27 | NUR ---
NURSE NOTES: Dr. Dominguez saw patient on rounds, made aware that CT chest results were available, he will review. Also made aware that pt had pulled out PIV but was currently not getting any IV medication. No new orders at this time.
--- NOTE | 2019-12-13 12:48 | Pulmonology Progress Note ---
Subjective ROS Limited/Unobtainable: Yes Interval Events: Comfortable; denies pain Constitutional: Reports: no symptoms HEENT: Repors: no symptoms Respiratory: Reports: no symptoms Cardiovascular: Reports: no symptoms Gastrointestinal/Abdominal: Reports: no symptoms Genitourinary: Reports: no symptoms Allergies: Coded Allergies: No Known Allergies (Unverified , 07/22/19) Objective Last 24 Hour Vital Signs Date Time Temp Pulse Resp B/P (MAP) Pulse Ox O2 Delivery O2 Flow Rate FiO2 12/13/19 12:00 97.7 87 18 97/52 (67) 97 12/13/19 09:00 Nasal Cannula 2.0 12/13/19 08:00 97.7 93 18 99/66 (77) 93 12/13/19 04:00 99.2 87 20 119/64 (82) 93 12/13/19 00:00 99.5 86 20 110/71 (84) 94 12/12/19 21:00 Nasal Cannula 2.0 12/12/19 20:00 98.6 91 18 99/63 (75) 93 12/12/19 16:00 98.8 87 20 107/67 (80) 4 Intake and Output 12/12/19 12/13/19 19:00 07:00 Intake Total 340 ml 430 ml Output Total 600 ml 650 ml Balance -260 ml -220 ml Intake Oral 340 ml 430 ml Output Urine Total 600 ml 650 ml # Bowel Movements 1 2 General Appearance: no acute distress HEENT: normocephalic Respiratory: chest wall non-tender Cardiovascular: normal peripheral pulses Abdomen: normal bowel sounds Microbiology Date/Time Source Procedure Growth Status 12/10/19 14:32 Nasal Not Otherwise Specified MRSA Culture - Final Staphylococcus Aureus - Mrsa Complete 12/10/19 14:32 Rectum - Final NO CARBAPENEM-RESISTANT ENTEROBACTERI... Complete 12/10/19 14:32 Rectum VRE Culture - Final NO VANCOMYCIN RESISTANT ENTEROCOCCUS ... Complete Current Medications Medications (Trade) Dose Ordered Sig/Sparkle Route PRN Reason Start Time Stop Time Status Last Admin Dose Admin Acetaminophen (Tylenol) 500 mg Q4H PRN ORAL Temp >100.5 12/10/19 13:15 01/09/20 13:14 12/10/19 21:26 Amoxicillin/ Clavulanate Potassium (Augmentin) 875 mg EVERY 12 HOURS ORAL 12/11/19 12:15 12/18/19 12:14 12/13/19 08:03 Assessment/Plan Assessment/Plan IMPRESSION: 1. Pneumonia, right lower lobe, healthcare-acquired. 2. History of previous UTI. 3. HIV. 4. CHF. 5. Schizophrenia. 6. Possible left paratracheal mass; none seen on chest CT DISCUSSION: Continue empiric antibiotics, oxygen, and pulmonary hygiene. I will follow. Reviewed CT chest; no mass seen Margaret Brown Omar Syed MD Dec 13, 2019 12:48
--- NOTE | 2019-12-13 15:09 | Infectious Diseases Prog Note ---
Assessment/Plan Assessment/Plan IMPRESSION: HIV, COPD Bronchiectasis UTI, Nephrolithiasis with right-sided staghorn stone, schizophrenia, Anemia, Bifascicular heart block. T11 & L1 compression fractures RECOMMENDATION: Continue Augmentin Subjective ROS Limited/Unobtainable: Yes Allergies: Coded Allergies: No Known Allergies (Unverified , 07/22/19) Objective Vital Signs Last 24 Hour Vital Signs Date Time Temp Pulse Resp B/P (MAP) Pulse Ox O2 Delivery O2 Flow Rate FiO2 12/13/19 12:00 97.7 87 18 97/52 (67) 97 12/13/19 09:00 Nasal Cannula 2.0 12/13/19 08:00 97.7 93 18 99/66 (77) 93 12/13/19 04:00 99.2 87 20 119/64 (82) 93 12/13/19 00:00 99.5 86 20 110/71 (84) 94 12/12/19 21:00 Nasal Cannula 2.0 12/12/19 20:00 98.6 91 18 99/63 (75) 93 12/12/19 16:00 98.8 87 20 107/67 (80) 4 Height (Feet): 5 Height (Inches): 6.00 Weight (Pounds): 121 General Appearance: no acute distress HEENT: mucous membranes moist Respiratory/Chest: lungs clear Cardiovascular: normal rate Abdomen: soft, non tender Extremities: no edema Neurologic/Psychiatric: alert, responsive, disoriented Current Medications Medications (Trade) Dose Ordered Sig/Sparkle Route PRN Reason Start Time Stop Time Status Last Admin Dose Admin Acetaminophen (Tylenol) 500 mg Q4H PRN ORAL Temp >100.5 12/10/19 13:15 01/09/20 13:14 12/10/19 21:26 Amoxicillin/ Clavulanate Potassium (Augmentin) 875 mg EVERY 12 HOURS ORAL 12/11/19 12:15 12/18/19 12:14 12/13/19 08:03 Ronald Nguyen MD Dec 13, 2019 15:09
[2019-12-13 15:20] LABS: BASOPHILS % (AUTO) 1.1 % (0.0-2.0); EOSINOPHILS % (AUTO) 1.7 % (0.0-3.0); HEMATOCRIT 35.5 % (42.0-52.0); HEMOGLOBIN 10.8 G/DL (14.2-18.0); LYMPHOCYTES % (AUTO) 26.9 % (20.0-45.0); MEAN CORPUSCULAR VOLUME 106 FL (80-99); NEUTROPHILS % (AUTO) 63.2 % (45.0-75.0); PLATELET COUNT 357 K/UL (150-450); RED BLOOD COUNT 3.36 M/UL (4.70-6.10); RED CELL DISTRIBUTION WIDTH 14.1 % (11.6-14.8); WHITE BLOOD COUNT 11.7 K/UL (4.8-10.8)
[2019-12-13 16:00] VITALS: BP 98/65
--- NOTE | 2019-12-13 19:23 | NUR ---
HAND-OFF: Report given to Keyana ESPINOZA.
[2019-12-13 20:00] VITALS: BP 101/63
--- NOTE | 2019-12-13 20:00 | NUR ---
NURSE NOTES: RECEIVED PATIENT LYING IN BED, AWAKE, ALERT/ORIENTED TO SELF, REALITY ORIENTATION PROVIDED DURING ASSESSMENT, REQUIRE FREQUENT INTERVENTIONS, DENIES PAIN. NO SIGNS AND SYMPTOMS OF ACUTE CARDIO RESPIRATORY DISTRESS/SHORTNESS OF BREATH, DENIES CHEST PAIN, NO PERIPHERAL EDEMA NOTED. GENERALIZED WEAKNESS NOTED TO BILATERAL UPPER/LOWER EXTREMITIES. NO REPORT OF GI DISCOMFORT, NO N/V/D. SIDE RAILS UP X3/BED IN LOWEST POSITION FOR SAFETY, FREQUENT ROUNDING FOR SAFETY/NEEDS. CONTINUE WITH CURRENT PLAN OF CARE . NAD.
--- NOTE | 2019-12-13 20:14 | General Progress Note ---
Assessment/Plan Problem List: (1) Dehydration ICD Codes: E86.0 - Dehydration SNOMED: 77664703 (2) Anemia ICD Codes: D64.9 - Anemia, unspecified SNOMED: 719345164 (3) Fever ICD Codes: R50.9 - Fever, unspecified SNOMED: 282646342 Qualifiers: Qualified Codes: R50.9 - Fever, unspecified (4) Pneumonia ICD Codes: J18.9 - Pneumonia, unspecified organism SNOMED: 535883896 Qualifiers: Qualified Codes: J18.9 - Pneumonia, unspecified organism (5) Electrolyte imbalance ICD Codes: E87.8 - Other disorders of electrolyte and fluid balance, not elsewhere classified SNOMED: 283512132 Status: progressing Assessment/Plan: pna resp insuff leukocytosis afebrile supportive therapy Subjective ROS Limited/Unobtainable: Yes Allergies: Coded Allergies: No Known Allergies (Unverified , 07/22/19) Objective Last 24 Hour Vital Signs Date Time Temp Pulse Resp B/P (MAP) Pulse Ox O2 Delivery O2 Flow Rate FiO2 12/13/19 16:00 99.1 93 19 98/65 (76) 94 12/13/19 12:00 97.7 87 18 97/52 (67) 97 12/13/19 09:00 Nasal Cannula 2.0 12/13/19 08:00 97.7 93 18 99/66 (77) 93 12/13/19 04:00 99.2 87 20 119/64 (82) 93 12/13/19 00:00 99.5 86 20 110/71 (84) 94 12/12/19 21:00 Nasal Cannula 2.0 Intake and Output 12/12/19 12/13/19 19:00 07:00 Intake Total 340 ml 430 ml Output Total 600 ml 650 ml Balance -260 ml -220 ml Intake Oral 340 ml 430 ml Output Urine Total 600 ml 650 ml # Bowel Movements 1 2 Laboratory Tests 12/13/19 14:50: White Blood Count 11.7H, Red Blood Count 3.36L, Hemoglobin 10.8L, Hematocrit 35.5L, Mean Corpuscular Volume 106H, Mean Corpuscular Hemoglobin 32.0H, Mean Corpuscular Hemoglobin Concent 30.3L, Red Cell Distribution Width 14.1, Platelet Count 357, Mean Platelet Volume 7.8, Neutrophils (%) (Auto) 63.2, Lymphocytes (%) (Auto) 26.9, Monocytes (%) (Auto) 7.0, Eosinophils (%) (Auto) 1.7, Basophils (%) (Auto) 1.1 Height (Feet): 5 Height (Inches): 6.00 Weight (Pounds): 121 Latoya Michael MD Dec 13, 2019 20:14
--- NOTE | 2019-12-13 22:36 | CDS Physician Query ---
Clarification is required for compliance, coding accuracy, and to reflect severity of illness for this patient. Dear Dr. Latoya Michael M.D. Date: 12/13/2019 CDI/CDS Name: Rashad Fierro Clinical Documentation Statement: "The patient was sent from a retirement for hypoxia." [ H& P Latoya Michael M.D. 12/10/19] ASSESSMENT AND PLAN: Pneumonia, respiratory insufficiency, sepsis, and hypoxia. Clinical Finding Show: LAB (12/08) : Chem: Calcium level 7.9 [8.5-10.1], Please Clarify the diagnosis associated with this finding: [ ] Hypocalcemia [ ] Finding no significant [ ] Other: Diagnosis: Present on Admission: [] Yes [] No [] Clinically Undetermined Physician signature Date Please also document in your Progress Notes and/or Discharge Summary and indicate if the condition was present on admission. FRANKLIN
[2019-12-14] VITALS: BP 111/66
[2019-12-14 04:00] VITALS: BP 99/65
--- NOTE | 2019-12-14 06:07 | NUR ---
NURSE NOTES: RESTED WELL, NO SIGNIFICANT CHANGE OF CONDITION NOTED THROUGHOUT THE NIGHT. SAFETY MAINTAINED. NAD.
--- NOTE | 2019-12-14 07:13 | NUR ---
HAND-OFF: Report given to RODOLFO.
--- NOTE | 2019-12-14 07:14 | NUR ---
HAND-OFF: Report given to RODOLFO .
--- NOTE | 2019-12-14 07:30 | NUR ---
NURSE NOTES: Report received from Keyana ESPINOZA. Patient seen on rounds, AxOx1, not in distress, on O2 at 2lpm via NC, oxygen sats stable. Sarabia cath secured and draining well. Bed low and locked, siderails up x2, zone alarms on 1, call light within reach, will continue to monitor.
[2019-12-14] MEDS: Augmentin 875mg Tab ORAL SCH (07:55)
[2019-12-14 08:00] VITALS: BP 109/67
--- NOTE | 2019-12-14 10:05 | Pulmonology Progress Note ---
Subjective ROS Limited/Unobtainable: Yes Interval Events: Comfortable; Constitutional: Reports: no symptoms HEENT: Repors: no symptoms Respiratory: Reports: no symptoms Cardiovascular: Reports: no symptoms Gastrointestinal/Abdominal: Reports: no symptoms Genitourinary: Reports: no symptoms Allergies: Coded Allergies: No Known Allergies (Unverified , 07/22/19) Objective Last 24 Hour Vital Signs Date Time Temp Pulse Resp B/P (MAP) Pulse Ox O2 Delivery O2 Flow Rate FiO2 12/14/19 04:00 98.4 88 20 99/65 (76) 94 12/14/19 00:00 98.6 92 20 111/66 (81) 94 12/13/19 21:00 Nasal Cannula 2.0 12/13/19 20:00 98.1 92 18 101/63 (76) 93 12/13/19 16:00 99.1 93 19 98/65 (76) 94 12/13/19 12:00 97.7 87 18 97/52 (67) 97 Intake and Output 12/13/19 12/14/19 19:00 07:00 Intake Total 480 ml 360 ml Output Total 500 ml Balance 480 ml -140 ml Intake Oral 480 ml 360 ml Output Urine Total 500 ml # Bowel Movements 1 1 General Appearance: no acute distress HEENT: normocephalic Respiratory: chest wall non-tender Cardiovascular: normal peripheral pulses Abdomen: normal bowel sounds Laboratory Tests 12/13/19 14:50: White Blood Count 11.7H, Red Blood Count 3.36L, Hemoglobin 10.8L, Hematocrit 35.5L, Mean Corpuscular Volume 106H, Mean Corpuscular Hemoglobin 32.0H, Mean Corpuscular Hemoglobin Concent 30.3L, Red Cell Distribution Width 14.1, Platelet Count 357, Mean Platelet Volume 7.8, Neutrophils (%) (Auto) 63.2, Lymphocytes (%) (Auto) 26.9, Monocytes (%) (Auto) 7.0, Eosinophils (%) (Auto) 1.7, Basophils (%) (Auto) 1.1 Current Medications Medications (Trade) Dose Ordered Sig/Sparkle Route PRN Reason Start Time Stop Time Status Last Admin Dose Admin Acetaminophen (Tylenol) 500 mg Q4H PRN ORAL Temp >100.5 12/10/19 13:15 01/09/20 13:14 12/10/19 21:26 Amoxicillin/ Clavulanate Potassium (Augmentin) 875 mg EVERY 12 HOURS ORAL 12/11/19 12:15 12/18/19 12:14 12/14/19 07:55 Assessment/Plan Assessment/Plan IMPRESSION: 1. Pneumonia, right lower lobe, healthcare-acquired. 2. History of previous UTI. 3. HIV. 4. CHF. 5. Schizophrenia. 6. Possible left paratracheal mass; none seen on chest CT DISCUSSION: Continue empiric antibiotics, oxygen, and pulmonary hygiene. I will follow. Reviewed CT chest; no mass seen Margaret Brown Omar Syed MD Dec 14, 2019 10:05
--- NOTE | 2019-12-14 10:38 | Hematology/Onc Progress Note ---
Assessment/Plan Assessment/Plan Assessment and Recs # Anemia of chronic disease, multifactorial --> no bleeding noted --> no hemolysis is seen --> hgb trend 12-->11-->9.6->10.8 --> transfuse as needed # Leukocytosis likely due to pna --> wbc 14-->12 --> smear is noted --> ct of chest reviewed --> abx: augmentin # Thrombocytopenia with a hx of low platelets in the past, currently 116k on admission, may be related to underlying pna --> smear has been reviewed --> hep panel negative, hiv NEG --> meds reviewed --> HOLD transf unless platelet drops significantly lower --> plt trend 115-->164k->174k # Pneumonia on cxr --> per id --> abx: levaquin-->augmentin --> Ct of the chest noted # Shortness of breath likely due to the patient's underlying COPD and possible pneumonia. The patient is already on ceftriaxone and azithromycin. His first troponin is negative. --> as per pulm --> NC # HIV on anti-retroviral therapy --> per Dr. Ronald Nguyen. # UTI. --> s/p abx # Schizophrenia. # Right lower lobe pneumonia. Appreciate consultation and krista Rn. Subjective Constitutional: Denies: no symptoms, chills, fever, malaise, weakness, other HEENT: Denies: no symptoms, eye pain, blurred vision, tearing, double vision, ear pain, ear discharge, nose pain, nose congestion, throat pain, throat swelling, mouth pain, mouth swelling, other Cardiovascular: Denies: no symptoms, chest pain, edema, irregular heart rate, lightheadedness, palpitations, syncope, other Respiratory: Denies: no symptoms, cough, shortness of breath, SOB with excertion, SOB at rest, sputum, wheezing, other Gastrointestinal/Abdominal: Denies: no symptoms, abdomen distended, abdominal pain, black stools, tarry stools, blood in stool, constipated, diarrhea, difficulty swallowing, nausea, poor appetite, poor fluid intake, rectal bleeding , vomiting, other Genitourinary: Denies: no symptoms, burning, discharge, frequency, flank pain, hematuria, incontinence, pain, urgency, other Neurologic/Psychiatric: Denies: no symptoms, anxiety, depressed, emotional problems, headache, numbness, paresthesia, pre-existing deficit, seizure, tingling, tremors, weakness, other Endocrine: Denies: no symptoms, excessive sweating, flushing, intolerance to cold, intolerance to heat, increased hunger, increased thirst, increased urine, unexplained weight gain, unexplained weight loss, other Allergies: Coded Allergies: No Known Allergies (Unverified , 07/22/19) Subjective 12/12 confused, no acute events, ct chest reviewed, nc 2l, iv abx 12/13 labs noted, no bleeding, meds reviewed remains on nc Objective Objective Current Medications Medications (Trade) Dose Ordered Sig/Sparkle Route PRN Reason Start Time Stop Time Status Last Admin Dose Admin Acetaminophen (Tylenol) 500 mg Q4H PRN ORAL Temp >100.5 12/10/19 13:15 01/09/20 13:14 12/10/19 21:26 Amoxicillin/ Clavulanate Potassium (Augmentin) 875 mg EVERY 12 HOURS ORAL 12/11/19 12:15 12/18/19 12:14 12/14/19 07:55 Last 24 Hour Vital Signs Date Time Temp Pulse Resp B/P (MAP) Pulse Ox O2 Delivery O2 Flow Rate FiO2 12/14/19 04:00 98.4 88 20 99/65 (76) 94 12/14/19 00:00 98.6 92 20 111/66 (81) 94 12/13/19 21:00 Nasal Cannula 2.0 12/13/19 20:00 98.1 92 18 101/63 (76) 93 12/13/19 16:00 99.1 93 19 98/65 (76) 94 12/13/19 12:00 97.7 87 18 97/52 (67) 97 12/13/19 09:00 Nasal Cannula 2.0 12/13/19 08:00 97.7 93 18 99/66 (77) 93 12/13/19 04:00 99.2 87 20 119/64 (82) 93 12/13/19 00:00 99.5 86 20 110/71 (84) 94 12/12/19 21:00 Nasal Cannula 2.0 12/12/19 20:00 98.6 91 18 99/63 (75) 93 12/12/19 16:00 98.8 87 20 107/67 (80) 4 12/12/19 12:00 97.3 85 20 107/67 (80) 95 Intake and Output 12/13/19 12/14/19 19:00 07:00 Intake Total 480 ml 360 ml Output Total 500 ml Balance 480 ml -140 ml Intake Oral 480 ml 360 ml Output Urine Total 500 ml # Bowel Movements 1 1 Labs Test 12/13/19 14:50 White Blood Count 11.7 K/UL (4.8-10.8) Red Blood Count 3.36 M/UL (4.70-6.10) Hemoglobin 10.8 G/DL (14.2-18.0) Hematocrit 35.5 % (42.0-52.0) Mean Corpuscular Volume 106 FL (80-99) Mean Corpuscular Hemoglobin 32.0 PG (27.0-31.0) Mean Corpuscular Hemoglobin Concent 30.3 G/DL (32.0-36.0) Red Cell Distribution Width 14.1 % (11.6-14.8) Platelet Count 357 K/UL (150-450) Mean Platelet Volume 7.8 FL (6.5-10.1) Neutrophils (%) (Auto) 63.2 % (45.0-75.0) Lymphocytes (%) (Auto) 26.9 % (20.0-45.0) Monocytes (%) (Auto) 7.0 % (1.0-10.0) Eosinophils (%) (Auto) 1.7 % (0.0-3.0) Basophils (%) (Auto) 1.1 % (0.0-2.0) Height (Feet): 5 Height (Inches): 6.00 Weight (Pounds): 121 Objective Physical Exam Vitals: reviewed, normal Gen: no apparent distress, alert, GCS 15 HEENT: normocephalic, atraumatic Resp: chest non-tender, lungs clear, normal breath sounds Cardiovascular: regular rate, rhythm, no edema GI: normal bowel sounds, non tender, soft, nd Msk: normal range of motion, nt Neuro: alert, responsive, speech normal, no focal defects Skin: other - See RN skin exam Lymphatic: no adenopathy Prasad Franks MD Dec 14, 2019 10:38
[2019-12-14] MEDS ORDERED: AUGMENTIN 875-1 EAC1 ORAL (10:47)
[2019-12-14 12:00] VITALS: BP 101/69
--- NOTE | 2019-12-14 12:08 | Cardiac Electrophysiology PN ---
Assessment/Plan Assessment/Plan 1. Shortness of breath and elevated BNP and congestive heart failure. Predominant presentation is likely pneumonia with elevated white count of 14, 000. Rule out for MS and Echo Nl EF 2. History of schizophrenia. 3. Previous UTI. 4. Right lower lobe pneumonia. Follow up with Dr. Dominguez. 5. HIV. Subjective Subjective Confused in NAD. 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. No CP or SOB. Confused Objective Last 24 Hour Vital Signs Date Time Temp Pulse Resp B/P (MAP) Pulse Ox O2 Delivery O2 Flow Rate FiO2 12/14/19 04:00 98.4 88 20 99/65 (76) 94 12/14/19 00:00 98.6 92 20 111/66 (81) 94 12/13/19 21:00 Nasal Cannula 2.0 12/13/19 20:00 98.1 92 18 101/63 (76) 93 12/13/19 16:00 99.1 93 19 98/65 (76) 94 Intake and Output 12/13/19 12/14/19 19:00 07:00 Intake Total 480 ml 360 ml Output Total 500 ml Balance 480 ml -140 ml Intake Oral 480 ml 360 ml Output Urine Total 500 ml # Bowel Movements 1 1 Laboratory Tests Test 12/13/19 14:50 White Blood Count 11.7 K/UL (4.8-10.8) H Red Blood Count 3.36 M/UL (4.70-6.10) L Hemoglobin 10.8 G/DL (14.2-18.0) L Hematocrit 35.5 % (42.0-52.0) L Mean Corpuscular Volume 106 FL (80-99) H Mean Corpuscular Hemoglobin 32.0 PG (27.0-31.0) H Mean Corpuscular Hemoglobin Concent 30.3 G/DL (32.0-36.0) L Red Cell Distribution Width 14.1 % (11.6-14.8) Platelet Count 357 K/UL (150-450) Mean Platelet Volume 7.8 FL (6.5-10.1) Neutrophils (%) (Auto) 63.2 % (45.0-75.0) Lymphocytes (%) (Auto) 26.9 % (20.0-45.0) Monocytes (%) (Auto) 7.0 % (1.0-10.0) Eosinophils (%) (Auto) 1.7 % (0.0-3.0) Basophils (%) (Auto) 1.1 % (0.0-2.0) Objective HEAD AND NECK: No JVD. LUNGS: Coarse rhonchi. CARDIOVASCULAR: Shows regular S1 and S2 with no gallop or murmur. ABDOMEN: Soft. EXTREMITIES: No pitting edema. Kin Reynaga MD Dec 14, 2019 12:08
--- NOTE | 2019-12-14 12:48 | NUR ---
*-*DISCHARGE PLANNED*-* PATIENT HAS BEEN ACCEPTED AND WILL BE DISCHARGED BACK TO: [facility] P: [phone] [facility] SET FOR 2:30 PM S/W [place] Addendum: 12/14/19 at 1254 by BRANDON IRWIN CM *-*DISCHARGE PLANNED*-* PATIENT HAS BEEN ACCEPTED AND WILL BE DISCHARGED BACK TO: [facility] P: [phone] FOR NURSE TO NURSE REPORT [facility] SET FOR 2:30 PM S/W [place]
--- NOTE | 2019-12-14 13:04 | NUR ---
*-*DISCHARGE PLANNED*-* PATIENT HAS BEEN ACCEPTED AND WILL BE DISCHARGED BACK TO: [facility] P: [phone] FOR NURSE TO NURSE REPORT ROOM# HOUSE 1.C [facility] SET FOR 2:30 PM S/W [place].
--- NOTE | 2019-12-14 15:13 | NUR ---
NURSE NOTES: Gave report to refinery operator helper. Pt is being discharged to [facility]. Patient's primary nurse, Dorota is on lunch. Pt to be discharge with 16fr Sarabia in place. No IV in place. ID band removed. Pt is A/Ox2. Report given to [facility] by Dorota. Pt is stable for discharge.
--- NOTE | 2019-12-14 15:28 | NUR ---
*-* INSURANCE *-* ALL CLINICALS HAVE BEEN FAXED TO: [employer] [facility] AUTH#[id number] P:[phone] F:[phone]
--- NOTE | 2019-12-14 15:28 | NUR ---
NURSE NOTES: Patient discharged to [facility] via ambulance transport, AxOx1, not in distress, tolerating room air, vitals stable prior to transport. Sarabia cath Fr.[address] and draining. No other skin issues. Report given to Glendy BARON at SNF. Discharge paperwork sent with ambulance personnel. All belongings accounted for. Pt has no kin listed to inform of discharge. Left at 1530H in ambulance.
--- NOTE | 2019-12-15 13:11 | NUR ---
*-* NO DISCHARGE SUMMARY IN THE SYSTEM UNABLE TO SEND TO [facility] *-*
--- NOTE | 2019-12-15 14:11 | Discharge Summary ---
Discharge Summary Discharge Summary _ Summary DATE OF ADMISSION: 12/09/2019 DATE OF DISCHARGE: 2019 DISCHARGED BY: Dr. Michael REASON FOR ADMISSION: 59 years old male with past medical history of HIV, schizophrenia,, presented from the [facility] facility with hypoxia and fever. Patient received Tylenol at the facility and started on supplemental oxygen. Patient was afebrile in triage. He denied chest pain or shortness of breath. Laboratory work-up revealed leukocytosis WBC 14.4, hemoglobin 9, hematocrit 29.9. Lactic acid 1.4. Stable electrolytes. BUN 26, creatinine 1.3. Stable LFT. ProBNP 591. EKG revealed sinus rhythm with right bundle branch block. Chest x-ray revealed evidence of pneumonia. Urinalysis revealed pyuria, +2 protein ,+2 leukocyte esterase ,and many bacteria. Patient was swabbed for COVID-19 and subsequently admitted for further management. CONSULTANTS: call out clerk pulmonary Dr. Dominguez ID specialist Dr. Ronald Nguyen harp repairer/oncologist Dr. Franks HOSPITAL COURSE: Patient admitted to medical surgical floor. Patient initially was kept in isolation. Patient started on empiric antibiotic per ID specialist recommendation. SARS COV2 on 12/08 was not detected. Urine culture revealed Aerococci. On prior admission July 2019, ultrasound of the abdomen revealed right renal pelvic staghorn calculus, likely other l right renal calculi. Evidence of multiple nonobstructive left renal calculi. Supplemental oxygen was on board as needed to keep oximetry above 92%. Pulmonary toilet provided. Patient suspected of having a left paratracheal mass , however none was seen at the CT of the chest. CT of the chest demonstrated volume loss with atelectasis and scaring at both lung bases. Mild traction bronchiectasis. Bilateral upper lobe minimal mosaic perfusion pattern nonspecific , may indicate COPD changes or mild pulmonary edema. T11 and possibly L1 superior endplate vertebral body compression fracture deformities. Acuity undetermined. Cholelithiasis. Butt Trimmer followed. Serial troponin were negative . EKG revealed no acute ischemic changes. Patient was ruled out for acute MO. Echocardiogram revealed preserved ejection fraction of 60% with mild left ventricular hypertrophy. No evidence of wall motion abnormality. Shortness of breath most likely due to pneumonia, resolved. Prior to discharge pulse oximetry stable on room air. Hemoglobin and hematocrit were closely monitored with goal to keep hemoglobin above 7. Prior to discharge hemoglobin 10.8 hematocrit 30.5. HAART continued. CD4 540. Patient clinically stabilized and was ready for discharge to [facility] facility for continuation of care. FINAL DIAGNOSES: Pneumonia, right lower lobe, healthcare acquired Shortness of breath, most likely due to pneumonia COPD Bronchiectasis Congestive heart failure HIV T11 and L1 compression fracture UTI Nephrolithiasis with a right-sided staghorn stone Anemia of chronic disease. Schizophrenia DISCHARGE MEDICATIONS: See Medication Reconciliation list. DISCHARGE INSTRUCTIONS: Patient was discharged to the [facility] facility. Follow up with medical doctor at the facility. I have been assigned to dictate discharge summary for this account. I was not involved in the patient's management. Bethany Blair NP Dec 15, 2019 14:11
--- NOTE | 2019-12-16 11:55 | NUR ---
*-* INSURANCE *-* DISCHARGE SUMMARY HAS BEEN FAXED TO: [facility] AUTH#[id number] P:[phone] F:[phone]
== END 2019-12-14 15:30 | DRG 139 ==
LOC: EDBD 19:24 → EMR 19:35 → 4E 19:40 → EDBEDREQ 12-10 11:43 → 4E 12-11 13:30
DX: J18.9 Pneumonia, unspecified organism (principal); E87.8 Other disorders of electrolyte and fluid balance, not elsewhere classified; N39.0 Urinary tract infection, site not specified; E86.0 Dehydration; I45.2 Bifascicular block; J44.9 Chronic obstructive pulmonary disease, unspecified; N20.0 Calculus of kidney; Y95 Nosocomial condition; M48.55XA Collapsed vertebra, not elsewhere classified, thoracolumbar region, initial encounter for fracture; D63.8 Anemia in other chronic diseases classified elsewhere; K21.9 Gastro-esophageal reflux disease without esophagitis; R09.02 Hypoxemia; I45.10 Unspecified right bundle-branch block; K80.20 Calculus of gallbladder without cholecystitis without obstruction; I50.9 Heart failure, unspecified; F20.9 Schizophrenia, unspecified; D69.6 Thrombocytopenia, unspecified; J47.9 Bronchiectasis, uncomplicated
CPT/HCPCS: 36415; 71045; 71250; 80053; 81003; 82248; 83605; 83880; 84439; 84443; 84484; 85025; 86360; 87040; 87081; 87086; 93005; 93306; 96361; 96365; 99285; J7030